=== PATIENT | male | born 1980 | race Hispanic/Latino ===

== ENCOUNTER 2019-07-25 19:37 | Inpatient (IN) | payer BC, OTHER ==
[~2019-07-25] VITALS: Ht 175.3 cm; Wt 112.5 kg
[~2019-07-25 19:37] MED LIST: CEPH-578 PO; SULF1TAB42 PO; TYL3 PO
[2019-07-25 21:03] LABS: APPEARANCE,URINE Cloudy (CLEAR); BASOPHILS % (AUTO) 0.3 % (0.0-5.0); BILIRUBIN,URINE Negative (NEGATIVE); COLOR,URINE Dark Yellow (YELLOW); EOSINOPHILS % (AUTO) 1.8 % (0.0-8.0); GLUCOSE, URINE (UA) Negative (NEGATIVE); HEMATOCRIT 31.4 % (42-54); KETONES,URINE Negative (NEGATIVE); LEUKOCYTE ESTERASE ,URINE Small (NEGATIVE); LYMPHOCYTES % (AUTO) 33.7 % (21.0-51.0); MEAN CORPUSCULAR HEMOGLOBIN 34.7 pg (27.0-33.0); MEAN CORPUSCULAR HGB CONC 34.6 g/dL (32.0-36.0); MEAN CORPUSCULAR VOLUME 100.3 fL (79-99); MONOCYTES % (AUTO) 14.3 % (3.0-13.0); NEUTROPHILS % (AUTO) 49.9 % (40.0-77.0); NITRATE,URINE Positive (NEGATIVE); NUCLEATED RED BLOOD CELLS 0.2 % (0.0-0.19); OCCULT BLOOD,URINE Moderate (NEGATIVE); PLATELET COUNT (AUTO) 40 K/uL (130-400); PROTEIN,URINE POS 1+ mg/dL (NEGATIVE); RED BLOOD CELL COUNT(AUTO) 3.13 MIL/uL (4.50-6.20); RED CELL DISTRIBUTION WIDTH 16.8 % (11.0-15.5); WHITE BLOOD COUNT (AUTO) 4.2 K/uL (4.8-10.8)
[2019-07-25 21:12] LABS: BACTERIA,URINE Many /HPF (None Seen); MUCUS,URINE Moderate LPF (None Seen)
[2019-07-25 21:13] LABS: POTASSIUM 3.8 mmol/L (3.5-5.1)
[2019-07-25 21:17] LABS: INR 1.35 (0.85-1.15); PARTIAL THROMBOPLASTIN TIME 33.7 SEC (26.3-35.5)
[2019-07-25 21:18] LABS: ALBUMIN 1.3 g/dL (3.5-5.0); BILIRUBIN,TOTAL 1.7 mg/dL (0.2-1.0); TOTAL PROTEIN, SERUM 7.3 g/dL (6.0-8.3)
[2019-07-25] MEDS ORDERED: LACTULOSE 20 GM/30 ML UDCUP ONE (22:14)
[2019-07-25] MEDS ORDERED: CEFTRIAXONE SODIUM 1 GM ONE (22:15)
[2019-07-25] MEDS ORDERED: ONDANSETRON HCL 4 MG/2 ML VIAL IVP PRN ×2 (22:45)
[2019-07-25] MEDS ORDERED: ACETAMINOPHEN EXTRA STRENGTH 500 MG TABLET PO PRN (22:45)
[2019-07-26] MEDS ORDERED: FOLI0.4T2 PO (01:36)
[2019-07-26] MEDS ORDERED: FURO40TA7 PO (01:36)
[2019-07-26] MEDS ORDERED: SPIR50TA5 PO (01:36)
[2019-07-26] MEDS ORDERED: OXYC-586 PO (01:36)
--- NOTE | 2019-07-26 04:50 | NUR ---
Admitted to room 202 at 0450 from ED via wheelchair. Patient A&Ox4, VSS, no complaints at this time.
[2019-07-26 04:56] VITALS: BP 141/95
[2019-07-26 05:49] LABS: HEMATOCRIT 31.6 % (42-54); MEAN CORPUSCULAR HEMOGLOBIN 35.4 pg (27.0-33.0); MEAN CORPUSCULAR HGB CONC 34.9 g/dL (32.0-36.0); MEAN CORPUSCULAR VOLUME 101.3 fL (79-99); NUCLEATED RED BLOOD CELLS 0.1 % (0.0-0.19); PLATELET COUNT (AUTO) 37 K/uL (130-400); RED BLOOD CELL COUNT(AUTO) 3.12 MIL/uL (4.50-6.20); RED CELL DISTRIBUTION WIDTH 16.8 % (11.0-15.5); WHITE BLOOD COUNT (AUTO) 4.3 K/uL (4.8-10.8)
[2019-07-26 06:10] LABS: ALBUMIN 1.3 g/dL (3.5-5.0); BILIRUBIN,TOTAL 1.7 mg/dL (0.2-1.0); MAGNESIUM 2.8 mg/dL (1.80-2.40); PHOSPHORUS 3.1 mg/dL (2.5-4.9); POTASSIUM 3.7 mmol/L (3.5-5.1); TOTAL PROTEIN, SERUM 7.2 g/dL (6.0-8.3)
[2019-07-26 07:41] VITALS: BP 113/66
[2019-07-26] MEDS ORDERED: CEFTRIAXONE SODIUM VIAL 1 GM in SODIUM CHLORIDE 0.9% 50 ML IV SCH (09:00)
[2019-07-26] MEDS ORDERED: THIAMINE HCL 100 MG/ML 2ML VIAL IV SCH (09:00)
[2019-07-26] MEDS ORDERED: PANTOPRAZOLE 40 MG/VIAL IVP SCH (09:00)
[2019-07-26] MEDS: LACTULOSE 20 GM/30 ML UDCUP PO SCH ×3 (09:54→21:43)
[2019-07-26] MEDS: THIAMINE HCL 100 MG/ML 2ML VIAL IVP SCH (09:54)
[2019-07-26] MEDS: CEFTRIAXONE SODIUM 1 GM IVP SCH (09:54)
[2019-07-26 11:36] VITALS: BP 130/90
--- NOTE | 2019-07-26 13:10 | NUR ---
REPORT RECEIVED FROM [facility] 2ND FLOOR, PT. TO ROOM 322, AAOX 4, NO NEEDS VOICED AT THIS TIME . WALKING ABOUT IN ROOM AND STATES JUST A LITTLE RESTLESS.
--- NOTE | 2019-07-26 14:11 | NUR ---
DC PLAN VISITED WITH PATIENT. PATIENT LIVES WITH GIRLFRIEND AND KIDS. INDEPENDENT ABLE TO PERFORM ADL'S. PATIENT HAS NO SERVICES OR DME'S. FEELS SAFE TO RETURN HOME. Addendum: 07/26/19 at 1412 by DANGELO WEEKS RN CM Amended: Links added.
[2019-07-26 16:00] VITALS: BP 143/76
[2019-07-26 19:00] VITALS: BP 147/88
[2019-07-26 23:00] VITALS: BP 131/75
[2019-07-27 03:00] VITALS: BP 129/62
[2019-07-27 07:30] VITALS: BP 134/75
--- NOTE | 2019-07-27 08:00 | NUR ---
AM SHIFT ASSESSMENT.
[2019-07-27] MEDS: LACTULOSE 20 GM/30 ML UDCUP PO SCH ×3 (08:58→20:49)
[2019-07-27] MEDS: PANTOPRAZOLE SODIUM 40 MG TABLET.DR PO SCH (08:58)
[2019-07-27 11:00] VITALS: BP 140/80
--- NOTE | 2019-07-27 14:00 | NUR ---
REFUSED LACTULOSE AT TIS TIME, STATES HAS HAD A TOTAL OF 7 LOOSE STOOLS SO FAR.
[2019-07-27] MEDS ORDERED: THIAMINE HCL 100 MG/ML 2ML VIAL ONE (15:17)
[2019-07-27] MEDS ORDERED: CEFTRIAXONE SODIUM 1 GM ONE (15:17)
[2019-07-27] MEDS: THIAMINE HCL 100 MG/ML 2ML VIAL IVP SCH (15:21)
[2019-07-27] MEDS: CEFTRIAXONE SODIUM 1 GM IVP SCH (15:22)
[2019-07-27 16:00] VITALS: BP 138/73
[2019-07-27] MEDS ORDERED: ACETAMINOPHEN EXTRA STRENGTH 500 MG TABLET ONE (21:02)
[2019-07-27 21:58] VITALS: BP 130/83
[2019-07-28 00:08] VITALS: BP 151/90
[2019-07-28 04:54] VITALS: BP 135/72
[2019-07-28 05:18] LABS: HEMATOCRIT 32.6 % (42-54); MEAN CORPUSCULAR HEMOGLOBIN 35.6 pg (27.0-33.0); MEAN CORPUSCULAR HGB CONC 35.1 g/dL (32.0-36.0); MEAN CORPUSCULAR VOLUME 101.4 fL (79-99); NUCLEATED RED BLOOD CELLS 0.1 % (0.0-0.19); PLATELET COUNT (AUTO) 29 K/uL (130-400); RED BLOOD CELL COUNT(AUTO) 3.22 MIL/uL (4.50-6.20); RED CELL DISTRIBUTION WIDTH 16.9 % (11.0-15.5); WHITE BLOOD COUNT (AUTO) 4.7 K/uL (4.8-10.8)
[2019-07-28 05:38] LABS: CREATININE 1.2 mg/dL (0.5-1.5); POTASSIUM 3.9 mmol/L (3.5-5.1)
[2019-07-28 05:44] LABS: BAND NEUTROPHILS % (MANUAL) 6 % (0-2); BASOPHILS % (MANUAL) 2 % (0-2); EOSINOPHILS % (MANUAL) 1 % (1-6); LYMPHOCYTES % (MANUAL) 23 % (22-44); MAN.DIFF COMMENT-IMPRESSION MANUAL DIFFERENTIAL; MONOCYTES % (MANUAL) 8 % (2-9); REACTIVE LYMPHOCYTES 1 % (0-0); SEGMENTED NEUTROPHILS % 59 % (40-70)
[2019-07-28 05:45] LABS: PLATELET MORPHOLOGY COMMENT MARKED DECREASE
[2019-07-28 08:00] VITALS: BP 141/79
[2019-07-28] MEDS: LACTULOSE 20 GM/30 ML UDCUP PO SCH ×2 (09:27→14:00)
[2019-07-28] MEDS: PANTOPRAZOLE SODIUM 40 MG TABLET.DR PO SCH (09:27)
[2019-07-28] MEDS: CEFTRIAXONE SODIUM 1 GM IVP SCH (10:33)
[2019-07-28] MEDS: THIAMINE HCL 100 MG/ML 2ML VIAL IVP SCH (10:33)
[2019-07-28 12:00] VITALS: BP 139/84
[2019-07-28] MEDS ORDERED: LEVO500T2 PO (14:23)
[2019-07-28] MEDS ORDERED: LACT10SO9 PO (14:23)
[2019-07-28 16:00] VITALS: BP 136/79
== END 2019-07-28 17:00 | disposition home or self-care (01) | DRG 442 ==
LOC: EDH 19:37 → EDHIP 19:38 → 2AH 07-26 04:28 → UNDODISIN 07-26 12:00 → 3DH 07-26 13:08
PROVIDERS: ADMIT Internal Medicine Nephrology; ATTEND Internal Medicine Nephrology
DX: K72.90 Hepatic failure, unspecified without coma (principal); N39.0 Urinary tract infection, site not specified; K74.60 Unspecified cirrhosis of liver; B19.20 Unspecified viral hepatitis C without hepatic coma; D69.6 Thrombocytopenia, unspecified; D64.9 Anemia, unspecified; E66.9 Obesity, unspecified; F10.10 Alcohol abuse, uncomplicated; Z91.19 Patient's noncompliance with other medical treatment and regimen; Z68.36 Body mass index [BMI] 36.0-36.9, adult
CPT/HCPCS: 36415; 76700; 80048; 80053; 81001; 82140; 82550; 83735; 84100; 84484; 85025; 85027; 85610; 85730; 87040; 87077; 87088; 87186; 93005; C9113; G0378; J0696; J3411

== ENCOUNTER 2019-11-11 07:46 | Inpatient (IN) | payer OTHER ==
[~2019-11-11] VITALS: Ht 172.7 cm; Wt 124.9 kg
[~2019-11-11 07:46] MED LIST changes: -CEPH-578 PO; +FOLI0.4T2 PO; +FURO40TA7 PO; +LACT10SO9 PO; +LEVO500T2 PO; +SPIR50TA5 PO; -SULF1TAB42 PO; -TYL3 PO
[2019-11-11 09:09] LABS: BASOPHILS % (AUTO) 0.9 % (0.0-5.0); EOSINOPHILS % (AUTO) 2.9 % (0.0-8.0); HEMATOCRIT 30.6 % (42-54); LYMPHOCYTES % (AUTO) 14.9 % (21.0-51.0); MEAN CORPUSCULAR HEMOGLOBIN 33.9 pg (27.0-33.0); MEAN CORPUSCULAR VOLUME 99.7 fL (79-99); MONOCYTES % (AUTO) 9.6 % (3.0-13.0); NEUTROPHILS % (AUTO) 70.7 % (40.0-77.0); PLATELET COUNT (AUTO) 70 K/uL (130-400); RED BLOOD CELL COUNT(AUTO) 3.07 MIL/uL (4.50-6.20); RED CELL DISTRIBUTION WIDTH 17.3 % (11.0-15.5)
[2019-11-11 09:26] LABS: INR 1.31 (0.85-1.15); PARTIAL THROMBOPLASTIN TIME 32.2 SEC (26.3-35.5); PROTHROMBIN TIME 13.6 SEC (9.6-11.6)
[2019-11-11 09:27] LABS: CREATININE 1.1 mg/dL (0.5-1.5); POTASSIUM 3.8 mmol/L (3.5-5.1)
[2019-11-11 09:31] LABS: ALBUMIN 1.3 g/dL (3.5-5.0); BILIRUBIN,TOTAL 2.3 mg/dL (0.2-1.0); TOTAL PROTEIN, SERUM 7.3 g/dL (6.0-8.3)
[2019-11-11] MEDS ORDERED: SODIUM CHLORIDE 0.9% 500ML 500 ML IV ONE (09:48)
[2019-11-11] MEDS ORDERED: IOHEXOL 350 MG/ML 100ML INFUS..BTL IV ONE (09:49)
[2019-11-11] MEDS ORDERED: MORPHINE SULFATE 2 MG/ML 1ML SYG ONE (10:08)
[2019-11-11] MEDS ORDERED: VANCOMYCIN 1.75 GM in SODIUM CHLORIDE 0.9% 250 ML IV SCH (11:34)
[2019-11-11] MEDS ORDERED: VANCOMYCIN 1GM+NS 250ML 250 ML IV SCH (11:34)
[2019-11-11] MEDS ORDERED: ACET1TAB12 PO (14:37)
[2019-11-11 14:46] VITALS: BP 120/76
[2019-11-11] MEDS ORDERED: VANCOMYCIN PROTOCOL PER PHARMACY IV SCH (15:15)
[2019-11-11] MEDS: ACETAMINOPHEN-CODEINE 300/30MG TAB PO PRN (15:18)
[2019-11-11] MEDS ORDERED: PANTOPRAZOLE 40 MG/VIAL IVP SCH (15:30)
[2019-11-11 16:00] VITALS: BP 134/79
[2019-11-11] MEDS: ZOSYN 3.375GM+NS 50ML 50 ML IV SCH (16:33)
[2019-11-11 20:12] VITALS: BP 136/69
[2019-11-11] MEDS ORDERED: LACTULOSE 20 GM/30 ML UDCUP PO SCH (21:00)
[2019-11-11] MEDS: ONDANSETRON HCL 4 MG/2 ML VIAL IVP PRN (21:10)
[2019-11-11] MEDS: VANCOMYCIN 1GM+NS 250ML 250 ML IV SCH (21:10)
[2019-11-12 00:16] VITALS: BP 135/86
[2019-11-12] MEDS: ZOSYN 3.375GM+NS 50ML 50 ML IV SCH ×4 (00:49→23:10)
[2019-11-12] MEDS: HYDROMORPHONE HCL 2 MG/ML VIAL IVP PRN ×3 (02:37→23:10)
[2019-11-12] MEDS: ONDANSETRON HCL 4 MG/2 ML VIAL IVP PRN ×2 (02:37→23:10)
[2019-11-12 04:16] VITALS: BP 119/67
[2019-11-12] MEDS: VANCOMYCIN 1GM+NS 250ML 250 ML IV SCH ×3 (04:39→21:24)
[2019-11-12 06:27] LABS: HEMATOCRIT 28.3 % (42-54); MEAN CORPUSCULAR HEMOGLOBIN 33.7 pg (27.0-33.0); MEAN CORPUSCULAR HGB CONC 34.3 g/dL (32.0-36.0); MEAN CORPUSCULAR VOLUME 98.3 fL (79-99); PLATELET COUNT (AUTO) 55 K/uL (130-400); RED BLOOD CELL COUNT(AUTO) 2.88 MIL/uL (4.50-6.20); RED CELL DISTRIBUTION WIDTH 17.1 % (11.0-15.5); WHITE BLOOD COUNT (AUTO) 6.7 K/uL (4.8-10.8)
[2019-11-12 07:02] LABS: CREATININE 1.1 mg/dL (0.5-1.5); PHOSPHORUS 3.7 mg/dL (2.5-4.9); POTASSIUM 4.1 mmol/L (3.5-5.1)
[2019-11-12 08:00] VITALS: BP 126/76
[2019-11-12] MEDS: FOLIC ACID 1 MG TABLET PO SCH (09:20)
[2019-11-12] MEDS: LACTULOSE 20 GM/30 ML UDCUP PO SCH ×2 (09:20→18:09)
[2019-11-12] MEDS: FUROSEMIDE 40 MG TABLET PO SCH (09:21)
[2019-11-12] MEDS: SPIRONOLACTONE 25 MG TAB PO SCH (09:21)
[2019-11-12 11:00] VITALS: BP 135/84
--- NOTE | 2019-11-12 11:00 | NUR ---
vanco trough 20.8 pharmacy stated to hold current dose
[2019-11-12] MEDS: SODIUM CHLORIDE 0.9% 1000ML 1,000 ML IV SCH (12:21)
[2019-11-12] MEDS: PANTOPRAZOLE SODIUM 40 MG TABLET.DR PO SCH (12:21)
[2019-11-12 16:00] VITALS: BP 138/84
--- NOTE | 2019-11-12 17:05 | NUR ---
cm note met with patient and spouse augustina gamez resides athome with spouse, independent wtih ambualtion but uses the walker only as needed. no provider, able to do own personal care, drives at times. spouse works at an [employer] office, states she is willing to assist with his wound care as needed. dc plan is back to home. at sd. Addendum: 11/12/19 at 1707 by LUCIA MANN CM Amended: Links added.
[2019-11-12 20:20] VITALS: BP 123/73
[2019-11-13] VITALS (7 sets, daily range): BP systolic 111–125; BP diastolic 60–78
[2019-11-13] MEDS: PANTOPRAZOLE SODIUM 40 MG TABLET.DR PO SCH (05:20)
[2019-11-13 05:39] LABS: BASOPHILS % (AUTO) 0.8 % (0.0-5.0); EOSINOPHILS % (AUTO) 4.6 % (0.0-8.0); HEMATOCRIT 27.8 % (42-54); LYMPHOCYTES % (AUTO) 16.5 % (21.0-51.0); MEAN CORPUSCULAR HEMOGLOBIN 33.3 pg (27.0-33.0); MEAN CORPUSCULAR HGB CONC 33.5 g/dL (32.0-36.0); MEAN CORPUSCULAR VOLUME 99.6 fL (79-99); MONOCYTES % (AUTO) 10.2 % (3.0-13.0); NEUTROPHILS % (AUTO) 67.1 % (40.0-77.0); PLATELET COUNT (AUTO) 51 K/uL (130-400); RED BLOOD CELL COUNT(AUTO) 2.79 MIL/uL (4.50-6.20); RED CELL DISTRIBUTION WIDTH 17.2 % (11.0-15.5); WHITE BLOOD COUNT (AUTO) 6.1 K/uL (4.8-10.8)
[2019-11-13 05:46] LABS: INR 1.33 (0.85-1.15); PARTIAL THROMBOPLASTIN TIME 35.3 SEC (26.3-35.5); PROTHROMBIN TIME 13.8 SEC (9.6-11.6)
[2019-11-13 05:52] LABS: ALBUMIN 1.1 g/dL (3.5-5.0); BILIRUBIN,TOTAL 1.7 mg/dL (0.2-1.0); CREATININE 1.2 mg/dL (0.5-1.5); POTASSIUM 3.5 mmol/L (3.5-5.1); TOTAL PROTEIN, SERUM 6.5 g/dL (6.0-8.3)
[2019-11-13] MEDS: ZOSYN 3.375GM+NS 50ML 50 ML IV SCH ×2 (07:51→17:31)
[2019-11-13] MEDS: LACTULOSE 20 GM/30 ML UDCUP PO SCH ×2 (08:00→17:00)
[2019-11-13] MEDS: ONDANSETRON HCL 4 MG/2 ML VIAL IVP PRN ×2 (08:14→15:30)
[2019-11-13] MEDS: HYDROMORPHONE HCL 2 MG/ML VIAL IVP PRN ×3 (08:15→21:09)
[2019-11-13] MEDS: FUROSEMIDE 40 MG TABLET PO SCH (08:18)
[2019-11-13] MEDS: FOLIC ACID 1 MG TABLET PO SCH (08:18)
[2019-11-13] MEDS: SPIRONOLACTONE 25 MG TAB PO SCH (08:18)
[2019-11-13] MEDS: VANCOMYCIN 1GM+NS 250ML 250 ML IV SCH ×2 (09:50→20:16)
--- NOTE | 2019-11-13 17:30 | NUR ---
SURGERY DR. RAHMAN CALLED TO NOTIFY THIS NURSE THAT I WAS TO CANCEL THE I&D SCHEDULED FOR TODAY. HE ASKED IF THE PATIENT HAD INFECTIOUS DISEASE ON BOARD AND I REPLIED "NO". HE ASKED IF THE PATIENT WAS ON ANTIBIOTICS AND HE WAS TOLD THAT YES HE IS ON TWO DIFFERENT IV ANTIBIOTICS. HE RECOMMENDED KEEPING THE PATIENT ON THE ANTIBIOTICS AND IF THE PRIMARY DIDN'T SEE IMPROVEMENT THEN HE SHOULD CALL HIM BACK TO LOOK AT THE LEG AGAIN. FOR THE MEANWHILE FEED THE PATIENT AND CANCEL THE SURGERY. DIRECTOR AND LAMP SHADES SUPERVISOR MADE AWARE.
[2019-11-14] MEDS: ZOSYN 3.375GM+NS 50ML 50 ML IV SCH ×3 (00:46→15:12)
[2019-11-14] MEDS: ACETAMINOPHEN-CODEINE 300/30MG TAB PO PRN ×2 (00:58→10:27)
[2019-11-14] MEDS: ONDANSETRON HCL 4 MG/2 ML VIAL IVP PRN ×3 (01:50→21:10)
[2019-11-14] MEDS: HYDROMORPHONE HCL 2 MG/ML VIAL IVP PRN ×4 (01:51→20:23)
[2019-11-14 03:54] VITALS: BP 116/66
[2019-11-14] MEDS: PANTOPRAZOLE SODIUM 40 MG TABLET.DR PO SCH (05:55)
[2019-11-14 06:41] LABS: HEMATOCRIT 27.7 % (42-54); MEAN CORPUSCULAR HEMOGLOBIN 33.3 pg (27.0-33.0); MEAN CORPUSCULAR HGB CONC 33.2 g/dL (32.0-36.0); MEAN CORPUSCULAR VOLUME 100.4 fL (79-99); PLATELET COUNT (AUTO) 60 K/uL (130-400); RED BLOOD CELL COUNT(AUTO) 2.76 MIL/uL (4.50-6.20); RED CELL DISTRIBUTION WIDTH 17.7 % (11.0-15.5)
[2019-11-14 06:55] LABS: CREATININE 1.2 mg/dL (0.5-1.5)
[2019-11-14] MEDS: LACTULOSE 20 GM/30 ML UDCUP PO SCH ×2 (07:18→16:25)
[2019-11-14 07:41] LABS: EOSINOPHILS % (MANUAL) 3 % (1-6); LYMPHOCYTES % (MANUAL) 12 % (22-44); MONOCYTES % (MANUAL) 9 % (2-9); SEGMENTED NEUTROPHILS % 76 % (40-70)
[2019-11-14 07:45] LABS: MAN.DIFF COMMENT-IMPRESSION MANUAL DIFFERENTIAL; PLATELET MORPHOLOGY COMMENT DECREASED
[2019-11-14 08:18] VITALS: BP 123/75
[2019-11-14] MEDS: VANCOMYCIN 1GM+NS 250ML 250 ML IV SCH ×2 (08:20→21:01)
[2019-11-14] MEDS: FOLIC ACID 1 MG TABLET PO SCH (08:20)
[2019-11-14] MEDS: FUROSEMIDE 40 MG TABLET PO SCH (08:21)
[2019-11-14] MEDS: SPIRONOLACTONE 25 MG TAB PO SCH (08:21)
[2019-11-14 10:56] VITALS: BP 141/82
[2019-11-14 17:12] VITALS: BP 116/63
[2019-11-14 20:00] VITALS: BP 130/73
[2019-11-14] MEDS: VANCOMYCIN 1.25 GM in SODIUM CHLORIDE 0.9% 250 ML IV SCH (21:00)
[2019-11-14] MEDS ORDERED: COMPOUND IV REFRIGERATED 1 EACH IVSOLN MISC PRN (21:15)
[2019-11-15] VITALS: BP 123/68
[2019-11-15] MEDS: ZOSYN 3.375GM+NS 50ML 50 ML IV SCH ×3 (00:17→17:46)
[2019-11-15] MEDS: HYDROMORPHONE HCL 2 MG/ML VIAL IVP PRN ×3 (02:12→09:29)
[2019-11-15 03:56] VITALS: BP 126/68
[2019-11-15] MEDS: ONDANSETRON HCL 4 MG/2 ML VIAL IVP PRN ×3 (06:01→15:02)
[2019-11-15 06:08] LABS: HEMATOCRIT 27.6 % (42-54); MEAN CORPUSCULAR HEMOGLOBIN 33.9 pg (27.0-33.0); MEAN CORPUSCULAR HGB CONC 33.7 g/dL (32.0-36.0); MEAN CORPUSCULAR VOLUME 100.7 fL (79-99); PLATELET COUNT (AUTO) 60 K/uL (130-400); RED BLOOD CELL COUNT(AUTO) 2.74 MIL/uL (4.50-6.20); RED CELL DISTRIBUTION WIDTH 17.3 % (11.0-15.5); WHITE BLOOD COUNT (AUTO) 6.2 K/uL (4.8-10.8)
[2019-11-15 06:28] LABS: CREATININE 1.1 mg/dL (0.5-1.5); POTASSIUM 3.6 mmol/L (3.5-5.1)
[2019-11-15 08:38] VITALS: BP 125/71
[2019-11-15] MEDS: PANTOPRAZOLE SODIUM 40 MG TABLET.DR PO SCH (09:28)
[2019-11-15] MEDS: SPIRONOLACTONE 25 MG TAB PO SCH (09:28)
[2019-11-15] MEDS: LACTULOSE 20 GM/30 ML UDCUP PO SCH ×2 (09:28→17:00)
[2019-11-15] MEDS: FOLIC ACID 1 MG TABLET PO SCH (09:28)
[2019-11-15] MEDS: VANCOMYCIN 1.25 GM in SODIUM CHLORIDE 0.9% 250 ML IV SCH ×2 (09:28→20:07)
[2019-11-15] MEDS: FUROSEMIDE 40 MG TABLET PO SCH (09:28)
--- NOTE | 2019-11-15 11:04 | NUR ---
PT C/O PAIN, INCREASING IN FREQ DURATION AND INTENSITY, US OF RLE SHOWING AN INCREASE SIZE OF ABSCESS, NOTIFIED DR RAHMAN STATES HE WILL SEE PATIENT TODAY, NO ORDERS RECEIVED. PT IS STABLE, RLE EDEMATOUS, ERYTHEMA, WARM TO TOUCH, TENDER, SKIN INTACT, VS WNL. WILL CONT TO MONITOR
[2019-11-15 12:07] VITALS: BP 145/70
[2019-11-15] MEDS: HYDROMORPHONE HCL 0.5 MG/0.5 ML ML IVP PRN ×2 (15:02→20:07)
[2019-11-15 16:38] VITALS: BP 142/60
[2019-11-15 20:04] VITALS: BP 130/76
[2019-11-16] VITALS (30 sets, daily range): BP systolic 121–158; BP diastolic 71–93
[2019-11-16] MEDS: ZOSYN 3.375GM+NS 50ML 50 ML IV SCH ×4 (00:05→23:45)
[2019-11-16] MEDS: HYDROMORPHONE HCL 0.5 MG/0.5 ML ML IVP PRN ×5 (00:05→22:54)
[2019-11-16 05:04] LABS: HEMATOCRIT 26.1 % (42-54); MEAN CORPUSCULAR HEMOGLOBIN 33.2 pg (27.0-33.0); MEAN CORPUSCULAR HGB CONC 33.3 g/dL (32.0-36.0); MEAN CORPUSCULAR VOLUME 99.6 fL (79-99); PLATELET COUNT (AUTO) 60 K/uL (130-400); RED BLOOD CELL COUNT(AUTO) 2.62 MIL/uL (4.50-6.20); RED CELL DISTRIBUTION WIDTH 17.5 % (11.0-15.5); WHITE BLOOD COUNT (AUTO) 4.7 K/uL (4.8-10.8)
[2019-11-16 05:09] LABS: CREATININE 1.2 mg/dL (0.5-1.5); POTASSIUM 3.1 mmol/L (3.5-5.1)
[2019-11-16 05:18] LABS: INR 1.35 (0.85-1.15)
[2019-11-16] MEDS: PANTOPRAZOLE SODIUM 40 MG TABLET.DR PO SCH (07:30)
[2019-11-16] MEDS: LACTULOSE 20 GM/30 ML UDCUP PO SCH ×2 (07:41→16:34)
[2019-11-16] MEDS: FUROSEMIDE 40 MG TABLET PO SCH (07:41)
[2019-11-16] MEDS: SPIRONOLACTONE 25 MG TAB PO SCH (07:41)
[2019-11-16] MEDS: FOLIC ACID 1 MG TABLET PO SCH (07:41)
[2019-11-16] MEDS: ONDANSETRON HCL 4 MG/2 ML VIAL IVP PRN ×2 (08:57→18:45)
[2019-11-16] MEDS: VANCOMYCIN 1.25 GM in SODIUM CHLORIDE 0.9% 250 ML IV SCH ×2 (10:27→20:15)
[2019-11-16] MEDS ORDERED: LACTATED RINGERS 1000ML 1,000 ML IV ONE (13:35)
[2019-11-16] MEDS ORDERED: LIDOCAINE PF 2% 5ML ABBOJECT ONE (13:44)
[2019-11-16] MEDS ORDERED: MIDAZOLAM HCL 1 MG/ML 2ML VIAL ONE (13:44)
[2019-11-16] MEDS ORDERED: PROPOFOL 10 MG/ML 20ML VIAL IV ONE (13:45)
[2019-11-16] MEDS ORDERED: FENTANYL CITRATE PF 50 MCG/1 ML 2ML VIAL ONE (13:45)
[2019-11-16] MEDS ORDERED: CEFAZOLIN SODIUM 1 GM VIAL ONE (13:52)
[2019-11-16] MEDS ORDERED: SUCCINYLCHOLINE 200MG/10ML SYR ONE ×2 (13:53→13:56)
[2019-11-16] MEDS ORDERED: EPHEDRINE SULFATE 50 MG/ML AMPULE ONE (14:13)
[2019-11-16] MEDS: SODIUM CHLORIDE 0.9% 1000ML 1,000 ML IV SCH (14:58)
[2019-11-16] MEDS ORDERED: MEPERIDINE-PF 25 MG/ML SYG ONE ×3 (15:02→15:27)
[2019-11-16] MEDS ORDERED: DEXTROSE 50%-WATER 25 GM/50 ML VIAL ONE (15:42)
[2019-11-16] MEDS: ACETAMINOPHEN-CODEINE 300/30MG TAB PO PRN (20:16)
[2019-11-17] VITALS (7 sets, daily range): BP systolic 118–141; BP diastolic 50–79
[2019-11-17] MEDS: ACETAMINOPHEN-CODEINE 300/30MG TAB PO PRN (00:57)
[2019-11-17] MEDS: PANTOPRAZOLE SODIUM 40 MG TABLET.DR PO SCH (07:10)
[2019-11-17] MEDS: FUROSEMIDE 40 MG TABLET PO SCH (08:09)
[2019-11-17] MEDS: FOLIC ACID 1 MG TABLET PO SCH (08:09)
[2019-11-17] MEDS: ZOSYN 3.375GM+NS 50ML 50 ML IV SCH ×3 (08:09→23:57)
[2019-11-17] MEDS: LACTULOSE 20 GM/30 ML UDCUP PO SCH ×2 (08:09→17:00)
[2019-11-17] MEDS: ONDANSETRON HCL 4 MG/2 ML VIAL IVP PRN (08:10)
[2019-11-17] MEDS: HYDROMORPHONE HCL 0.5 MG/0.5 ML ML IVP PRN ×2 (08:10→19:57)
[2019-11-17] MEDS: SPIRONOLACTONE 25 MG TAB PO SCH (08:10)
[2019-11-17] MEDS: VANCOMYCIN 1.25 GM in SODIUM CHLORIDE 0.9% 250 ML IV SCH ×2 (09:58→21:37)
[2019-11-17] MEDS ORDERED: POTASSIUM CHLORIDE 10% ELIXIR 20 MEQ/15 ML UDCUP PO PRN (16:45)
[2019-11-17] MEDS ORDERED: LIDOCAINE HCL-MPF 1% 2ML VIAL IV PRN (16:45)
[2019-11-17] MEDS ORDERED: POTASSIUM CHLORIDE 20MEQ/100ML 100 ML IV PRN (16:45)
[2019-11-17] MEDS: POTASSIUM CHLORIDE 20 MEQ ERTAB PO PRN ×3 (17:25→23:57)
[2019-11-18 03:13] VITALS: BP 127/67
[2019-11-18] MEDS: HYDROMORPHONE HCL 0.5 MG/0.5 ML ML IVP PRN ×3 (05:01→23:05)
[2019-11-18 05:33] LABS: HEMATOCRIT 24.9 % (42-54); MEAN CORPUSCULAR HEMOGLOBIN 33.6 pg (27.0-33.0); MEAN CORPUSCULAR HGB CONC 34.1 g/dL (32.0-36.0); MEAN CORPUSCULAR VOLUME 98.4 fL (79-99); PLATELET COUNT (AUTO) 50 K/uL (130-400); RED BLOOD CELL COUNT(AUTO) 2.53 MIL/uL (4.50-6.20); RED CELL DISTRIBUTION WIDTH 17.2 % (11.0-15.5); WHITE BLOOD COUNT (AUTO) 4.4 K/uL (4.8-10.8)
[2019-11-18 05:58] LABS: BILIRUBIN,DIRECT 0.9 mg/dL (0.0-0.3); BILIRUBIN,TOTAL 1.4 mg/dL (0.2-1.0); CREATININE 1.1 mg/dL (0.5-1.5); MAGNESIUM 1.2 mg/dL (1.80-2.40); POTASSIUM 3.6 mmol/L (3.5-5.1); TOTAL PROTEIN, SERUM 6.2 g/dL (6.0-8.3)
[2019-11-18 06:04] LABS: BAND NEUTROPHILS % (MANUAL) 12 % (0-2); BASOPHILS % (MANUAL) 1 % (0-2); EOSINOPHILS % (MANUAL) 2 % (1-6); LYMPHOCYTES % (MANUAL) 14 % (22-44); MONOCYTES % (MANUAL) 8 % (2-9); SEGMENTED NEUTROPHILS % 63 % (40-70)
[2019-11-18 06:06] LABS: MAN.DIFF COMMENT-IMPRESSION MANUAL DIFFERENTIAL
[2019-11-18 06:07] LABS: PLATELET MORPHOLOGY COMMENT DECREASED
[2019-11-18] MEDS: PANTOPRAZOLE SODIUM 40 MG TABLET.DR PO SCH ×2 (06:33→10:50)
[2019-11-18] MEDS: MAGNESIUM 2GM PREMIX 50ML 50 ML IV PRN (06:34)
[2019-11-18] MEDS: POTASSIUM CHLORIDE 20 MEQ ERTAB PO PRN ×2 (06:34→10:49)
[2019-11-18] MEDS: LACTULOSE 20 GM/30 ML UDCUP PO SCH ×2 (08:00→17:00)
[2019-11-18 08:15] VITALS: BP 114/72
[2019-11-18] MEDS: ZOSYN 3.375GM+NS 50ML 50 ML IV SCH ×2 (10:43→15:52)
[2019-11-18] MEDS: VANCOMYCIN 1.25 GM in SODIUM CHLORIDE 0.9% 250 ML IV SCH ×2 (10:48→20:32)
[2019-11-18] MEDS: FOLIC ACID 1 MG TABLET PO SCH (10:49)
[2019-11-18] MEDS: FUROSEMIDE 40 MG TABLET PO SCH (10:49)
[2019-11-18] MEDS: SPIRONOLACTONE 25 MG TAB PO SCH (10:55)
[2019-11-18 11:21] VITALS: BP 123/73
--- NOTE | 2019-11-18 13:05 | NUR ---
DR AGUILAR ROUNDED ON PATIENT ORDERS RECEIVED FOR CBC,BMP IN AM. ORDERS PLACED
[2019-11-18 16:32] VITALS: BP 129/76
[2019-11-18 18:08] VITALS: BP 131/68
[2019-11-18 23:36] VITALS: BP 146/81
[2019-11-19] MEDS: ZOSYN 3.375GM+NS 50ML 50 ML IV SCH ×4 (00:02→23:55)
[2019-11-19 03:47] VITALS: BP 124/81
[2019-11-19 05:14] LABS: HEMATOCRIT 27.5 % (42-54); MEAN CORPUSCULAR HEMOGLOBIN 33.2 pg (27.0-33.0); MEAN CORPUSCULAR HGB CONC 33.8 g/dL (32.0-36.0); MEAN CORPUSCULAR VOLUME 98.2 fL (79-99); PLATELET COUNT (AUTO) 50 K/uL (130-400); RED CELL DISTRIBUTION WIDTH 17.5 % (11.0-15.5); WHITE BLOOD COUNT (AUTO) 4.2 K/uL (4.8-10.8)
[2019-11-19 05:22] LABS: CREATININE 1.1 mg/dL (0.5-1.5); MAGNESIUM 1.4 mg/dL (1.80-2.40); POTASSIUM 3.4 mmol/L (3.5-5.1)
[2019-11-19] MEDS: POTASSIUM CHLORIDE 20 MEQ ERTAB PO PRN ×2 (05:32→07:12)
[2019-11-19] MEDS: MAGNESIUM 2GM PREMIX 50ML 50 ML IV PRN (05:32)
[2019-11-19] MEDS: LACTULOSE 20 GM/30 ML UDCUP PO SCH ×2 (08:00→15:38)
[2019-11-19 08:05] VITALS: BP 114/63
[2019-11-19] MEDS: SPIRONOLACTONE 25 MG TAB PO SCH (08:36)
[2019-11-19] MEDS: FUROSEMIDE 40 MG TABLET PO SCH (08:37)
[2019-11-19] MEDS: FOLIC ACID 1 MG TABLET PO SCH (08:38)
[2019-11-19] MEDS: VANCOMYCIN 1.25 GM in SODIUM CHLORIDE 0.9% 250 ML IV SCH ×2 (08:47→21:24)
[2019-11-19] MEDS: HYDROMORPHONE HCL 0.5 MG/0.5 ML ML IVP PRN ×2 (08:52→17:01)
[2019-11-19 10:54] VITALS: BP 137/71
--- NOTE | 2019-11-19 13:30 | NUR ---
PHYSICIAN ROUNDS DR LAUREN AGUILAR ROUNDED ON PATIENT NEW ORDERS RECEIVED FOR CBC, BMP AND MAG LEVEL IN AM, ORDERS PLACED
[2019-11-19 15:37] VITALS: BP 141/83
[2019-11-19 19:29] VITALS: BP 139/66
[2019-11-19 23:45] VITALS: BP 137/76
[2019-11-20 03:22] VITALS: BP 143/77
[2019-11-20] MEDS: HYDROMORPHONE HCL 0.5 MG/0.5 ML ML IVP PRN ×3 (03:26→15:43)
[2019-11-20 06:01] LABS: BASOPHILS % (AUTO) 0.5 % (0.0-5.0); EOSINOPHILS % (AUTO) 9.8 % (0.0-8.0); HEMATOCRIT 26.5 % (42-54); LYMPHOCYTES % (AUTO) 23.8 % (21.0-51.0); MEAN CORPUSCULAR HEMOGLOBIN 33.5 pg (27.0-33.0); MEAN CORPUSCULAR HGB CONC 34.3 g/dL (32.0-36.0); MEAN CORPUSCULAR VOLUME 97.4 fL (79-99); MONOCYTES % (AUTO) 12.3 % (3.0-13.0); NEUTROPHILS % (AUTO) 52.1 % (40.0-77.0); PLATELET COUNT (AUTO) 49 K/uL (130-400); RED BLOOD CELL COUNT(AUTO) 2.72 MIL/uL (4.50-6.20); RED CELL DISTRIBUTION WIDTH 17.2 % (11.0-15.5); WHITE BLOOD COUNT (AUTO) 4.1 K/uL (4.8-10.8)
[2019-11-20 06:22] LABS: CREATININE 1.1 mg/dL (0.5-1.5); MAGNESIUM 1.5 mg/dL (1.80-2.40)
[2019-11-20] MEDS: LACTULOSE 20 GM/30 ML UDCUP PO SCH ×2 (08:00→16:47)
[2019-11-20 08:27] VITALS: BP 133/75
[2019-11-20] MEDS: ZOSYN 3.375GM+NS 50ML 50 ML IV SCH ×2 (08:45→15:43)
[2019-11-20] MEDS: FUROSEMIDE 40 MG TABLET PO SCH (09:00)
[2019-11-20] MEDS: SPIRONOLACTONE 25 MG TAB PO SCH (09:00)
[2019-11-20] MEDS: FOLIC ACID 1 MG TABLET PO SCH (09:00)
[2019-11-20 12:01] VITALS: BP 140/67
[2019-11-20] MEDS: PANTOPRAZOLE SODIUM 40 MG TABLET.DR PO SCH (12:26)
[2019-11-20] MEDS: VANCOMYCIN 1.25 GM in SODIUM CHLORIDE 0.9% 250 ML IV SCH (14:56)
--- NOTE | 2019-11-20 15:42 | NUR ---
ACE Screen - LOS X 9 Pt admitted for Cirrhosis of Liver. Pt NPO at time of screen. RD to follow up with Cirrhosis nutrition education and possible malnutrition education. Pt with Obesity Class II. RD to continue to monitor and follow up. Addendum: 11/20/19 at [address] RD Amended: Links added.
[2019-11-20 16:50] VITALS: BP 149/72
--- NOTE | 2019-11-20 19:01 | NUR ---
SPOKE TO DR. RAHMAN REGARDING SURGERY STATUS. PER DR. RAHMAN, RESCHEDULED SURGERY EARLIER FOR TOMORROW AT 1200. OKAY TO FEED PATIENT TIL 0500. PATIENT MADE AWARE.
[2019-11-20 20:00] VITALS: BP 144/76
[2019-11-21] VITALS (30 sets, daily range): BP systolic 102–194; BP diastolic 43–97
[2019-11-21] MEDS: ZOSYN 3.375GM+NS 50ML 50 ML IV SCH ×3 (00:42→23:00)
[2019-11-21] MEDS: HYDROMORPHONE HCL 0.5 MG/0.5 ML ML IVP PRN ×3 (01:27→16:50)
[2019-11-21] MEDS: VANCOMYCIN 1.25 GM in SODIUM CHLORIDE 0.9% 250 ML IV SCH ×2 (03:30→16:36)
[2019-11-21] MEDS: ACETAMINOPHEN 325 MG TAB PO PRN ×3 (03:50→23:13)
[2019-11-21] MEDS: PANTOPRAZOLE SODIUM 40 MG TABLET.DR PO SCH (06:51)
--- NOTE | 2019-11-21 07:40 | NUR ---
NOTE AAOX3. HE IS SITTING UP. DENIES PAIN AT THIS TIME BUT REPORTS DISCOMFORT TO RIGHT CALF TO AREA WHERE WOUND VAC IS LOCATED. NO LEAKS NOTED TO WOUND VAC DRESSING BUT CANISTER IS COMPLETELY FULL. I CHANGED IT AND SMALL LEAKED SEEMED TO BE PRESENT AROUND CALF AREA BUT REINFORCED DRESSING AND IT STOPPED WITH NO LEAKS DETECTED NOW. BBS CLEAR. NO N/V. HE IS NPO FOR SURGERY TODAY WITH DR RAHMAN. IT WAS INITIALLY PLANNED FOR YESTERDAY BUT IT WAS POSTPONED FOR TODAY.
[2019-11-21] MEDS: FOLIC ACID 1 MG TABLET PO SCH (09:20)
[2019-11-21] MEDS: SPIRONOLACTONE 25 MG TAB PO SCH (09:20)
[2019-11-21] MEDS: FUROSEMIDE 40 MG TABLET PO SCH (09:21)
[2019-11-21] MEDS: LACTULOSE 20 GM/30 ML UDCUP PO SCH ×2 (09:21→16:36)
--- NOTE | 2019-11-21 10:30 | NUR ---
NOTE INFORMED DR RAHMAN OF PATIENT HAVING FEVERS DURING THE NIGHT AND ALSO T MAX 102.3 THIS AM. HE ASKED QUESTIONS REGARDING LAB VALUES. INITIALLY HE SAID TO DO CT SCAN BUT THEN SAID TO KEEP PATIENT ON SCHEDULE FOR TODAY. I EXPLAINED THAT DR AGUILAR WAS MADE AWARE AND HE ORDERED BLOOD CULTURES WHICH HAVE ALREADY BEEN DONE.
[2019-11-21] MEDS ORDERED: LACTATED RINGERS 1000ML 1,000 ML IV ONE (12:30)
--- NOTE | 2019-11-21 12:30 | NUR ---
NOTE PATIENT OUT OF ROOM VIA BED FOR SURGERY WITH DR RAHMAN. TRANSPORTING NURSE ROCÍO HOLT AWARE OF PATIENT FEBRILE EPISODES DURING THE NIGHT AND THIS AM.
[2019-11-21] MEDS ORDERED: MAGNESIUM 2GM PREMIX 50ML 50 ML IV SCH (12:45)
[2019-11-21] MEDS ORDERED: LIDOCAINE PF 2% 5ML ABBOJECT ONE (13:12)
[2019-11-21] MEDS ORDERED: ROCURONIUM 10MG/1ML SYR 10 MG/ML ML ONE (13:13)
[2019-11-21] MEDS ORDERED: MIDAZOLAM HCL 1 MG/ML 2ML VIAL ONE (13:13)
[2019-11-21] MEDS ORDERED: PROPOFOL 10 MG/ML 20ML VIAL IV ONE (13:13)
[2019-11-21] MEDS ORDERED: ONDANSETRON HCL 4 MG/2 ML VIAL ONE (13:13)
[2019-11-21] MEDS ORDERED: FENTANYL CITRATE PF 50 MCG/1 ML 2ML VIAL ONE ×2 (13:17→13:28)
[2019-11-21] MEDS ORDERED: CEFAZOLIN SODIUM 500 MG VIAL IJ ONE (13:32)
[2019-11-21] MEDS ORDERED: GLYCOPYRROLATE 1 MG/5 ML SYRINGE ONE (13:50)
[2019-11-21] MEDS ORDERED: NEOSTIGMINE 5MG/5ML SYR IV ONE (13:51)
[2019-11-21] MEDS ORDERED: METOCLOPRAMIDE 10 MG/2 ML VIAL ONE (13:52)
--- NOTE | 2019-11-21 15:20 | NUR ---
REPORT RECEIVED FROM SENA FLORES (PACU). PATIENT S/P WOUND CLOSURE TO RLE BY DR. RAHMAN UNDER GENERAL ANESTHESIA. DRESSING DRY AND INTACT. ORDERS TO REMOVE DRESSING ON WEDNESDAY AND FOLLOW UP IN OFFICE NEXT WEEK. PATIENT STABLE AT THIS TIME.
[2019-11-21] MEDS ORDERED: ZOSYN 3.375GM+NS 50ML 50 ML IV ONE (22:55)
[2019-11-22] MEDS: HYDROMORPHONE HCL 0.5 MG/0.5 ML ML IVP PRN (02:34)
[2019-11-22 03:00] VITALS: BP 117/67
[2019-11-22] MEDS: VANCOMYCIN 1.25 GM in SODIUM CHLORIDE 0.9% 250 ML IV SCH (03:56)
[2019-11-22 05:20] LABS: HEMATOCRIT 24.9 % (42-54); MEAN CORPUSCULAR HEMOGLOBIN 34.5 pg (27.0-33.0); MEAN CORPUSCULAR HGB CONC 35.7 g/dL (32.0-36.0); MEAN CORPUSCULAR VOLUME 96.5 fL (79-99); PLATELET COUNT (AUTO) 36 K/uL (130-400); RED BLOOD CELL COUNT(AUTO) 2.58 MIL/uL (4.50-6.20); RED CELL DISTRIBUTION WIDTH 17.2 % (11.0-15.5)
[2019-11-22 05:27] LABS: BILIRUBIN,TOTAL 1.5 mg/dL (0.2-1.0); CREATININE 1.4 mg/dL (0.5-1.5); MAGNESIUM 1.3 mg/dL (1.80-2.40); POTASSIUM 4.3 mmol/L (3.5-5.1)
[2019-11-22] MEDS: MAGNESIUM 2GM PREMIX 50ML 50 ML IV PRN (05:45)
[2019-11-22 06:02] LABS: BAND NEUTROPHILS % (MANUAL) 14 % (0-2); BASOPHILS % (MANUAL) 2 % (0-2); EOSINOPHILS % (MANUAL) 10 % (1-6); LYMPHOCYTES % (MANUAL) 22 % (22-44); MAN.DIFF COMMENT-IMPRESSION MANUAL DIFFERENTIAL; MONOCYTES % (MANUAL) 8 % (2-9); PLATELET MORPHOLOGY COMMENT MARKED DECREASE; REACTIVE LYMPHOCYTES 4 % (0-0); SEGMENTED NEUTROPHILS % 40 % (40-70)
[2019-11-22 08:06] VITALS: BP 131/65
[2019-11-22] MEDS: ZOSYN 3.375GM+NS 50ML 50 ML IV SCH ×3 (08:21→23:19)
[2019-11-22] MEDS: SPIRONOLACTONE 25 MG TAB PO SCH (08:22)
[2019-11-22] MEDS: PANTOPRAZOLE SODIUM 40 MG TABLET.DR PO SCH (08:22)
[2019-11-22] MEDS: FUROSEMIDE 40 MG TABLET PO SCH (08:22)
[2019-11-22] MEDS: FOLIC ACID 1 MG TABLET PO SCH (08:22)
[2019-11-22] MEDS: LACTULOSE 20 GM/30 ML UDCUP PO SCH ×2 (08:23→16:20)
[2019-11-22] MEDS: ACETAMINOPHEN-CODEINE 300/30MG TAB PO PRN (08:32)
[2019-11-22 11:08] VITALS: BP 134/62
--- NOTE | 2019-11-22 14:43 | NUR ---
DISCSSED DISCAHRGE AND AFTERCARE WITH PATIENT FORM PROVIDER TO FAX TO PT'S WORK TO SHOW ADMIT DATE. PT DISCOURAGED THAT HE LOST HIS JOB SECOND TO HOSPITALIZATION. ENCOURAGED TO CALL HR AND HR THE VERIFICATION OF HOSPITALIZATION ADDED TO HIS HR FILE IN CARE IN THE FURTHER HE CAN BE ELIGIBLE FOR [employer]. CM WILL FOLLOW. PT WILL BE DISCHARGED TO HOME TO DAY Addendum: 11/22/19 at 1445 by SANDRA GATES RN CM Amended: Links added.
[2019-11-22] MEDS ORDERED: LEVOFLOXACIN 500 MG/D5W 100 ML 100 ML IV SCH (15:15)
[2019-11-22 16:24] VITALS: BP 117/69
[2019-11-22 19:00] VITALS: BP 120/74
[2019-11-22] MEDS ORDERED: DIPHENHYDRAMINE HCL 25 MG CAPSULE ONE (22:11)
--- NOTE | 2019-11-22 22:52 | NUR ---
RASH NOTICED RASH ON PATIENTS ARMS AND CHEST/ABDOMEN, PATIENT HADNT NOTICED, NO ITCHING AT THIS TIME, CALLED DR. AGUILAR INFORMED OF PATIENTS CONDITION WITH ORDERS, BENADRYL 25 MG PO GIVEN
[2019-11-22 23:00] VITALS: BP 129/61
[2019-11-23 03:00] VITALS: BP 119/67
[2019-11-23 04:19] LABS: HEMATOCRIT 24.5 % (42-54); MEAN CORPUSCULAR HEMOGLOBIN 33.3 pg (27.0-33.0); MEAN CORPUSCULAR HGB CONC 35.1 g/dL (32.0-36.0); PLATELET COUNT (AUTO) 28 K/uL (130-400); RED BLOOD CELL COUNT(AUTO) 2.58 MIL/uL (4.50-6.20); WHITE BLOOD COUNT (AUTO) 4.3 K/uL (4.8-10.8)
[2019-11-23 04:24] LABS: CREATININE 1.2 mg/dL (0.5-1.5)
[2019-11-23] MEDS: ZOSYN 3.375GM+NS 50ML 50 ML IV SCH (06:31)
[2019-11-23] MEDS: PANTOPRAZOLE SODIUM 40 MG TABLET.DR PO SCH (06:31)
[2019-11-23 07:15] LABS: BAND NEUTROPHILS % (MANUAL) 19 % (0-2); EOSINOPHILS % (MANUAL) 10 % (1-6); LYMPHOCYTES % (MANUAL) 16 % (22-44); MAN.DIFF COMMENT-IMPRESSION MANUAL DIFFERENTIAL; MONOCYTES % (MANUAL) 12 % (2-9); SEGMENTED NEUTROPHILS % 43 % (40-70)
[2019-11-23 08:06] VITALS: BP 136/70
[2019-11-23] MEDS: DIPHENHYDRAMINE HCL 25 MG CAPSULE PO PRN ×2 (09:02→20:19)
[2019-11-23] MEDS: LACTULOSE 20 GM/30 ML UDCUP PO SCH ×2 (09:02→18:14)
[2019-11-23] MEDS: SPIRONOLACTONE 25 MG TAB PO SCH (09:02)
[2019-11-23] MEDS: FOLIC ACID 1 MG TABLET PO SCH (09:02)
[2019-11-23] MEDS: FUROSEMIDE 40 MG TABLET PO SCH (09:03)
[2019-11-23 11:07] VITALS: BP 129/74
[2019-11-23] MEDS: HYDROMORPHONE HCL 0.5 MG/0.5 ML ML IVP PRN (14:52)
--- NOTE | 2019-11-23 16:01 | NUR ---
RD FOLLOW UP Pt tolerating Heart healthy diet with no report of GI distress, good PO intake at 100%. Pt with PCM;Recommend 30mL Promod TID. RD provided Cirrhosis Nutrition Education. RD to continue to monitor. Please notify as additional nutrition concerns arise. thank you. Addendum: 11/23/19 at [address] RD Amended: Links added.
--- NOTE | 2019-11-23 16:04 | NUR ---
NUTRITION EDUCATION RD provided Cirrhosis Nutrition Education. RD provided reference materials and handouts. RD answered all of Pt questions. Pt verbalized understanding. RD encouraged Pt to notify as questions or concerns arise. Addendum: 11/23/19 at [address] RD Amended: Links added.
[2019-11-23 16:35] VITALS: BP 135/75
[2019-11-23 20:00] VITALS: BP 120/71
[2019-11-23] MEDS: SULFAMETHOX-TMP DS 800/160 TAB PO SCH (20:19)
[2019-11-23] MEDS: ACETAMINOPHEN-CODEINE 300/30MG TAB PO PRN (23:10)
[2019-11-24] VITALS: BP 125/63
[2019-11-24 04:00] VITALS: BP 110/65
[2019-11-24 06:10] LABS: HEMATOCRIT 23.8 % (42-54); MEAN CORPUSCULAR HEMOGLOBIN 33.5 pg (27.0-33.0); MEAN CORPUSCULAR HGB CONC 34.9 g/dL (32.0-36.0); PLATELET COUNT (AUTO) 31 K/uL (130-400); RED BLOOD CELL COUNT(AUTO) 2.48 MIL/uL (4.50-6.20); RED CELL DISTRIBUTION WIDTH 17.2 % (11.0-15.5)
[2019-11-24 06:18] LABS: CREATININE 1.1 mg/dL (0.5-1.5); POTASSIUM 3.9 mmol/L (3.5-5.1)
[2019-11-24] MEDS: PANTOPRAZOLE SODIUM 40 MG TABLET.DR PO SCH (06:24)
[2019-11-24 07:58] LABS: BAND NEUTROPHILS % (MANUAL) 2 % (0-2); EOSINOPHILS % (MANUAL) 8 % (1-6); LYMPHOCYTES % (MANUAL) 14 % (22-44); MAN.DIFF COMMENT-IMPRESSION MANUAL DIFFERENTIAL; MONOCYTES % (MANUAL) 17 % (2-9); SEGMENTED NEUTROPHILS % 59 % (40-70)
[2019-11-24 07:59] LABS: PLATELET MORPHOLOGY COMMENT MARKED DECREASE
[2019-11-24 08:00] VITALS: BP 125/68
[2019-11-24] MEDS: FUROSEMIDE 40 MG TABLET PO SCH (09:02)
[2019-11-24] MEDS: SULFAMETHOX-TMP DS 800/160 TAB PO SCH (09:02)
[2019-11-24] MEDS: LACTULOSE 20 GM/30 ML UDCUP PO SCH ×2 (09:02→17:06)
[2019-11-24] MEDS: SPIRONOLACTONE 25 MG TAB PO SCH (09:02)
[2019-11-24] MEDS: DIPHENHYDRAMINE HCL 25 MG CAPSULE PO PRN (09:02)
[2019-11-24] MEDS: FOLIC ACID 1 MG TABLET PO SCH (09:02)
[2019-11-24 11:00] VITALS: BP 118/59
--- NOTE | 2019-11-24 17:30 | NUR ---
DISCHARGE PATIENT GIVEN DISCHARGE INSTRUCTIONS VIA TEACH BACK. 20G PIV X2 TO LFA DISCONTINUED, TIPS INTACT. PATIENT TO FOLLOW UP WITH DR. AGUILAR AND DR. RAHMAN. DRESSING TO RLE CHANGED. DRESSING WITH MODERATE SEROUS DRAINAGE. NEW GAUZE APPLIED AND WRAPPED WITH CLARENCE WRAP. PATIENT/SPOUSE INSTRUCTED TO KEEP INCISION CLEAN AND DRY, MAY APPLY NEW DRESSING IF WET OR DISLODGED. WOUND DRESSINGS GIVEN TO PATIENT. S/S OF INFECTION TO REPORT TO DR. RAHMAN. PATIENT STABLE AT THIS TIME. PATIENT WHEELED TO [facility] BY TRISTIN RENEE ACCOMPANIED BY SPOUSE.
== END 2019-11-24 18:40 | disposition home or self-care (01) | DRG 580 ==
LOC: EDH 07:46 → EDHIP 12:08 → 4BH 13:52
PROVIDERS: ADMIT Internal Medicine Nephrology; ATTEND Internal Medicine Nephrology
PROC: 0J9N0ZZ Drainage of Right Lower Leg Subcutaneous Tissue and Fascia, Open Approach (ICD-10-PCS; principal; 2019-11-16 08:00)
PROC: 0KBS0ZZ Excision of Right Lower Leg Muscle, Open Approach (ICD-10-PCS; 2019-11-16 08:00)
PROC: 0KBS0ZZ Excision of Right Lower Leg Muscle, Open Approach (ICD-10-PCS; 2019-11-21)
PROC: 0KU Muscles, Supplement (ICD-10-PCS; 2019-11-21 12:00)
DX: L02.415 Cutaneous abscess of right lower limb (principal); R18.8 Other ascites; E87.2 Acidosis; L03.115 Cellulitis of right lower limb; K74.60 Unspecified cirrhosis of liver; E87.6 Hypokalemia; B19.20 Unspecified viral hepatitis C without hepatic coma; D64.9 Anemia, unspecified; I10 Essential (primary) hypertension; E83.42 Hypomagnesemia; F10.10 Alcohol abuse, uncomplicated; D69.6 Thrombocytopenia, unspecified; Z91.19 Patient's noncompliance with other medical treatment and regimen; Z87.442 Personal history of urinary calculi
CPT/HCPCS: 36415; 73701; 76882; 80048; 80053; 80076; 80202; 82948; 83735; 84100; 85025; 85027; 85610; 85730; 87040; 87070; 87076; 87077; 87186; 87205; C9113; G0378; J0330; J0690; J1170; J1956; J2001; J2175; J2250; J2405; J2543; J2704; J2710; J2765; J3010; J3370; J3475; J3490; J7030; J7040; J7070; J7120; Q0163; Q9967

== ENCOUNTER 2020-03-31 01:57 | Inpatient (IN) | payer OTHER ==
[~2020-03-31] VITALS: Ht 175.3 cm; Wt 143.8 kg
[~2020-03-31 01:57] MED LIST changes: +ACET1TAB12 PO; -LEVO500T2 PO
[2020-03-31] MEDS ORDERED: SODIUM CHLORIDE 0.9% 1000ML 2,000 ML IV ONE (02:33)
[2020-03-31] MEDS ORDERED: ZOSYN 3.375GM+NS 50ML 50 ML IV ONE (02:39)
[2020-03-31 02:57] LABS: BASOPHILS % (AUTO) 0.2 % (0.0-5.0); EOSINOPHILS % (AUTO) 0.5 % (0.0-8.0); HEMATOCRIT 30.5 % (42-54); LYMPHOCYTES % (AUTO) 8.5 % (21.0-51.0); MEAN CORPUSCULAR HEMOGLOBIN 35.6 pg (27.0-33.0); MEAN CORPUSCULAR HGB CONC 34.1 g/dL (32.0-36.0); MEAN CORPUSCULAR VOLUME 104.5 fL (79-99); MONOCYTES % (AUTO) 4.9 % (3.0-13.0); NEUTROPHILS % (AUTO) 85.5 % (40.0-77.0); NUCLEATED RED BLOOD CELLS 0.2 % (0.0-0.19); PLATELET COUNT (AUTO) 31 K/uL (130-400); RED BLOOD CELL COUNT(AUTO) 2.92 MIL/uL (4.50-6.20); RED CELL DISTRIBUTION WIDTH 18.6 % (11.0-15.5); WHITE BLOOD COUNT (AUTO) 8.5 K/uL (4.8-10.8)
[2020-03-31] MEDS ORDERED: VANCOMYCIN 1GM+NS 250ML 250 ML IV ONE (02:58)
[2020-03-31 03:03] LABS: CREATININE 3.5 mg/dL (0.5-1.5); POTASSIUM 3.4 mmol/L (3.5-5.1)
[2020-03-31 03:08] LABS: ALBUMIN 1.2 g/dL (3.5-5.0); BILIRUBIN,TOTAL 3.6 mg/dL (0.2-1.0); TOTAL PROTEIN, SERUM 5.9 g/dL (6.0-8.3)
[2020-03-31 03:19] LABS: B-TYPE NATRIURETIC PEPTIDE 174 pg/mL (0-100)
[2020-03-31 03:23] LABS: PLATELET MORPHOLOGY COMMENT MARKED DECREASE
[2020-03-31] MEDS ORDERED: DEXTROSE 50%-WATER 50 ML DISP.SYRIN IV ONE ×4 (03:23→23:37)
[2020-03-31 03:24] LABS: INR 1.43 (0.85-1.15); PARTIAL THROMBOPLASTIN TIME 46.6 SEC (26.3-35.5); PROTHROMBIN TIME 15.2 SEC (9.6-11.6)
[2020-03-31] MEDS ORDERED: NOREPINEPHRINE 4MG/NS 250ML 250 ML IV ONE ×8 (03:31→21:56)
[2020-03-31] MEDS ORDERED: FENTANYL CITRATE PF 50 MCG/1 ML 2ML VIAL ONE ×2 (04:23→06:04)
[2020-03-31] MEDS ORDERED: SODIUM CHLORIDE 0.9% 1000ML 1,000 ML IV ONE (04:24)
[2020-03-31] MEDS ORDERED: MAGNESIUM 2GM PREMIX 50ML 50 ML IV ONE (06:02)
[2020-03-31 06:36] LABS: ABG BASE EXCESS -19.6 mmol/L (-2.0-3.0); ABG HCO3 8.5 mmol/L (21.0-28.0); ABG OXYGEN SATURATION 95.9 % (95.0-99.0); ABG PCO2 27 mmHg (35-48)
[2020-03-31] MEDS ORDERED: SODIUM BICARB 50MEQ 50ML VIAL ONE (06:46)
[2020-03-31] MEDS ORDERED: DEXTROSE 5%-LACTATED RINGERS 1,000 ML IV ONE (06:47)
[2020-03-31] MEDS ORDERED: DEXTROSE 5 % AND 0.9 % NACL 1,000 ML IV SCH (07:15)
[2020-03-31] MEDS ORDERED: NOREPINEPHRINE 4MG/NS 250ML 250 ML IV SCH (07:30)
[2020-03-31] MEDS: VANCOMYCIN 750MG + NS 250 ML IV SCH ×2 (12:00)
[2020-03-31] MEDS ORDERED: TRAMADOL HCL 50 MG TABLET ONE (14:21)
[2020-03-31] MEDS ORDERED: LIDOCAINE 5% TOPICAL PATCH TP ONE (14:21)
[2020-03-31] MEDS ORDERED: ZOSYN 3.375GM+NS 50ML 50 ML IV SCH (15:30)
[2020-03-31] MEDS ORDERED: VANCOMYCIN PROTOCOL PER PHARMACY IV SCH (15:30)
[2020-03-31] MEDS ORDERED: ACETAMINOPHEN 325 MG TAB PO PRN (15:30)
[2020-03-31] MEDS ORDERED: HYDROMORPHONE HCL 0.5 MG/0.5 ML ML ONE ×2 (16:03→20:57)
[2020-03-31] MEDS ORDERED: COMPOUND IV REFRIGERATED 1 EACH IVSOLN MISC PRN (16:45)
[2020-03-31] MEDS ORDERED: VANCOMYCIN 2 GM in SODIUM CHLORIDE 0.9% 500ML 500 ML IV ONE (17:00)
[2020-03-31] MEDS ORDERED: MIDODRINE HCL 5 MG TABLET PO SCH ×2 (17:20→21:00)
--- NOTE | 2020-03-31 18:31 | NUR ---
INITIAL: Call placed to MARIKA Ade on facesheet. Discussed w her dcp. Per Ade pt lives w her and their 3children. Prior to admission he was independent w ambulation and ADLs. HE does not own any DME or receive services. Per Ade she is able to assist hime as needed and DCP is for home. CM to continue to follow and wait for Md recommendations. Addendum: 03/31/20 at 1837 by GIOVANI WHEATLEY CM Amended: Links added.
[2020-03-31] MEDS ORDERED: DEXTROSE 5 % AND 0.9 % NACL 1,000 ML IV ONE (20:28)
[2020-03-31] MEDS ORDERED: LACTULOSE 20 GM/30 ML UDCUP ONE (20:56)
[2020-03-31] MEDS ORDERED: ACETAMINOPHEN 325 MG TAB ONE (20:56)
[2020-03-31] MEDS ORDERED: MIDODRINE HCL 5 MG TABLET ONE (20:57)
[2020-03-31] MEDS: LACTULOSE 20 GM/30 ML UDCUP PO SCH (21:00)
[2020-03-31] MEDS ORDERED: VASOPRESSIN 20 UNITS/ML 1ML VIAL ONE (23:22)
[2020-03-31] MEDS ORDERED: SODIUM CHLORIDE 0.9% 100 ML IV ONE (23:23)
[2020-03-31] MEDS ORDERED: SODIUM BICARBONATE 650 MG TAB ONE (23:31)
[2020-03-31] MEDS ORDERED: HYDROMORPHONE HCL 0.5 MG/0.5 ML ML IVP PRN (23:45)
[2020-03-31] MEDS ORDERED: ZINC SULFATE 220 CAPSULE ONE (23:45)
[2020-03-31] MEDS: ASCORBIC ACID 500 MG TAB PO SCH (23:55)
[2020-03-31] MEDS ORDERED: SODIUM BICARBONATE 650 MG TAB PO SCH (23:55)
[2020-03-31] MEDS: FOLIC ACID/VITAMIN B COMP W-C 1 CAP TAB PO SCH (23:55)
[2020-03-31] MEDS: ZINC SULFATE 220 CAPSULE PO SCH (23:55)
[2020-04-01] VITALS (43 sets, daily range): BP systolic 63–129; BP diastolic 22–91
[2020-04-01 00:02] LABS: ABG BASE EXCESS -18.5 mmol/L (-2.0-3.0); ABG HCO3 10.3 mmol/L (21.0-28.0); ABG PCO2 34 mmHg (35-48)
[2020-04-01] MEDS: PHARMACY COMMUNICATION MISC SCH ×9 (01:00→22:30)
[2020-04-01 01:05] LABS: CREATININE 3.5 mg/dL (0.5-1.5); POTASSIUM 4.6 mmol/L (3.5-5.1)
[2020-04-01] MEDS: SODIUM BICARB 8.4% 50ML SYRING 150 MEQ in DEXTROSE 5%-WATER 1,000 ML IVP SCH ×3 (01:30→18:38)
[2020-04-01] MEDS ORDERED: SODIUM CHLORIDE 0.9% 50 ML IV ONE (02:54)
[2020-04-01] MEDS ORDERED: VASOPRESSIN 20 UNITS/ML 1ML VIAL ONE (02:54)
[2020-04-01] MEDS ORDERED: DEXTROSE 5 % AND 0.9 % NACL 1,000 ML IV ONE (03:04)
[2020-04-01] MEDS ORDERED: SODIUM BICARB 50MEQ 50ML VIAL ONE ×3 (03:17→17:46)
[2020-04-01] MEDS ORDERED: DEXTROSE 10%-WATER 1,000 ML IV ONE (03:39)
[2020-04-01 04:27] LABS: APPEARANCE,URINE Cloudy (CLEAR); BILIRUBIN,URINE Moderate (NEGATIVE); COLOR,URINE Dark Yellow (YELLOW); GLUCOSE, URINE (UA) Negative (NEGATIVE); KETONES,URINE Trace mg/dL (NEGATIVE); LEUKOCYTE ESTERASE ,URINE Trace (NEGATIVE); NITRATE,URINE Negative (NEGATIVE); OCCULT BLOOD,URINE Large (NEGATIVE); PH,URINE 5.5 (5.0-8.0); PROTEIN,URINE 300 mg/dL (NEGATIVE)
[2020-04-01 04:34] LABS: AMPHET/METH SCREEN,URINE NEGATIVE (NEGATIVE); BARBITURATE SCREEN, URINE NEGATIVE (NEGATIVE); BENZODIAZEPINES SCREEN,URINE NEGATIVE (NEGATIVE); CANNABINOID SCREEN,URINE NEGATIVE (NEGATIVE); COCAINE SCREEN,URINE NEGATIVE (NEGATIVE); OPIATE SCREEN,URINE POSITIVE (NEGATIVE); PHENCYCLIDINE SCREEN,URINE NEGATIVE (NEGATIVE)
[2020-04-01] MEDS: DEXTROSE 10%-WATER 1,000 ML IV SCH ×2 (05:00→21:00)
[2020-04-01] MEDS ORDERED: SODIUM BICARBONATE 650 MG TAB ONE ×3 (05:14→10:09)
[2020-04-01 05:22] LABS: AMORPHOUS SEDIMENT,UR Moderate /LPF (None Seen); BACTERIA,URINE Moderate /HPF (None Seen)
[2020-04-01] MEDS: SODIUM BICARBONATE 650 MG TAB PO SCH ×5 (06:00→22:00)
[2020-04-01] MEDS ORDERED: NOREPINEPHRINE 4MG/NS 250ML 250 ML IV ONE ×2 (06:41→09:42)
[2020-04-01] MEDS ORDERED: SODIUM BICARB 8.4% 50ML SYRINGE IVP SCH (08:00)
[2020-04-01] MEDS ORDERED: CEFTRIAXONE SODIUM 1 GM IVP SCH (08:00)
[2020-04-01] MEDS ORDERED: AZITHROMYCIN 500MG+NS 250ML 250 ML IV SCH (08:00)
[2020-04-01] MEDS ORDERED: LACTULOSE 20 GM/30 ML UDCUP ONE (08:35)
[2020-04-01] MEDS ORDERED: ASCORBIC ACID 500 MG TAB ONE (08:36)
[2020-04-01] MEDS ORDERED: ZINC SULFATE 220 CAPSULE ONE (08:37)
[2020-04-01] MEDS ORDERED: MIDODRINE HCL 5 MG TABLET ONE ×2 (08:38→12:25)
[2020-04-01] MEDS ORDERED: FAMOTIDINE/PF 20 MG/2 ML VIAL IV ONE (08:39)
[2020-04-01] MEDS: ASCORBIC ACID 500 MG TAB PO SCH (09:00)
[2020-04-01] MEDS: LACTULOSE 20 GM/30 ML UDCUP PO SCH ×2 (09:00→21:00)
[2020-04-01] MEDS: FOLIC ACID/VITAMIN B COMP W-C 1 CAP TAB PO SCH (09:00)
[2020-04-01] MEDS: ZINC SULFATE 220 CAPSULE PO SCH (09:00)
[2020-04-01] MEDS: FAMOTIDINE/PF 20 MG/2 ML VIAL IV SCH (09:00)
[2020-04-01] MEDS: FOLIC ACID 1 MG TABLET PO SCH (09:00)
[2020-04-01 09:54] LABS: HEMATOCRIT 30.5 % (42-54); MEAN CORPUSCULAR HEMOGLOBIN 35.2 pg (27.0-33.0); MEAN CORPUSCULAR HGB CONC 33.1 g/dL (32.0-36.0); MEAN CORPUSCULAR VOLUME 106.3 fL (79-99); NUCLEATED RED BLOOD CELLS 0.1 % (0.0-0.19); PLATELET COUNT (AUTO) 25 K/uL (130-400); RED BLOOD CELL COUNT(AUTO) 2.87 MIL/uL (4.50-6.20); RED CELL DISTRIBUTION WIDTH 18.5 % (11.0-15.5); WHITE BLOOD COUNT (AUTO) 21.8 K/uL (4.8-10.8)
[2020-04-01 09:59] LABS: ABG BASE EXCESS -17.9 mmol/L (-2.0-3.0); ABG HCO3 10.6 mmol/L (21.0-28.0); ABG OXYGEN SATURATION 90.9 % (95.0-99.0); ABG PCO2 34 mmHg (35-48)
[2020-04-01 10:13] LABS: CREATININE 4.2 mg/dL (0.5-1.5); PHOSPHORUS 9.1 mg/dL (2.5-4.9); POTASSIUM 5.2 mmol/L (3.5-5.1)
[2020-04-01] MEDS: CEFEPIME HCL 2 GM VIAL IVP SCH (10:46)
[2020-04-01 11:06] LABS: BAND NEUTROPHILS % (MANUAL) 29 % (0-2); LYMPHOCYTES % (MANUAL) 3 % (22-44); METAMYELOCYTES % 1 % (0-0); MONOCYTES % (MANUAL) 1 % (2-9); REACTIVE LYMPHOCYTES 8 % (0-0); SEGMENTED NEUTROPHILS % 58 % (40-70)
[2020-04-01 11:07] LABS: PLATELET MORPHOLOGY COMMENT MARKED DECREASE
[2020-04-01] MEDS ORDERED: DEXTROSE 50%-WATER 50 ML DISP.SYRIN IV ONE ×2 (11:22→17:40)
[2020-04-01] MEDS: VANCOMYCIN 750MG + NS 250 ML IV SCH ×2 (12:00)
[2020-04-01] MEDS ORDERED: ACETAMINOPHEN 325 MG TAB ONE (12:24)
[2020-04-01] MEDS ORDERED: CEFEPIME HCL 2 GM VIAL ONE (12:24)
[2020-04-01] MEDS ORDERED: SODIUM CHLORIDE 0.9% 100 ML IV ONE (12:27)
--- NOTE | 2020-04-01 14:00 | NUR ---
CALL TO PATIENT SPOUSE CRISTIAN FOR BETTER HX- PT HAS CIRRHOSIS, ON LACTULOR, SPIRONOLACTONE, AND FLOIC ACID OUTPATIENT, CRISTIAN STATES PROBABLY NOT TAKING. STATES FOLLOWED UP WITH JOSIAH MARTINEZ VIA PHONE- PICTURE OF LEG, POST LAST DISCHARGE. SPOUSE STATES HAS BEEN LOOKING AFTER THE WOUND HERSELF, TRYING TO KEEP IT CLEAN. NOT REALLY AWARE HOW SICK THE PATIENT IS. ELISHA DID NOT DISCUS, BUT DID SAY WOULD PASS THAT IMPORTANT PART OF THE HISTORY TO THE [facility] CONTACTED GEN RAO AT 1400, RE HX OF CIRRHOSIS, POSSIBLE HEPATORENAL SYNDROME HOME MED LACTULOSE, STATES MAYBE , PROB WILL START LACTULOSE. Addendum: 04/01/20 at 1552 by SANDRA GATES RN CM Amended: Links added.
[2020-04-01] MEDS ORDERED: ONDANSETRON HCL 4 MG/2 ML VIAL ONE (15:22)
[2020-04-01] MEDS ORDERED: SODIUM BICARB 50MEQ 50ML VIAL IV STA (15:45)
--- NOTE | 2020-04-01 15:52 | NUR ---
CHART REVIEWED, CALL TO RN Nabeel TEMPLE W PATIENT, CALL TO DR. AGUILAR AND TO MILLINERY DESIGNER MAIRA KAPADIA LIVER STATUS
[2020-04-01] MEDS ORDERED: CLINDAMYCIN 900 MG/D5% WATER 50 ML IV SCH (16:00)
[2020-04-01 17:38] LABS: ABG BASE EXCESS -14.3 mmol/L (-2.0-3.0); ABG HCO3 14.7 mmol/L (21.0-28.0); ABG OXYGEN SATURATION 98.5 % (95.0-99.0); ABG PCO2 48 mmHg (35-48)
[2020-04-01] MEDS ORDERED: SODIUM BICARB 50MEQ 50ML VIAL IV SCH (18:50)
[2020-04-01] MEDS ORDERED: DEXTROSE 50%-WATER 25 GM/50 ML VIAL IV SCH (18:50)
[2020-04-01] MEDS ORDERED: ALBUMIN (HUMAN) 25% 100 ML IV ONE (19:09)
[2020-04-01] MEDS ORDERED: ALBUMIN (HUMAN) 25% 50 ML IV SCH (19:15)
[2020-04-01] MEDS ORDERED: SODIUM CHLORIDE 0.9% 500ML 500 ML IV ONE (19:42)
--- NOTE | 2020-04-01 19:46 | NUR ---
RIGHT ARM PICC LINE ATTEMPTED, UNSUCCESSFUL. PTS LEFT ARM HAD ALREADY BEEN ASSESSED AND WAS EVEN MORE VASOCONSTRICTED. ATTEMPTED 4 STICKS, BUT VEINS ARE VASOCONSTRICTED AND FLATTEN WHEN ATTEMPTED TO ACCESS, LIKELY HYPOVOLEMIC WELL. ICU DR. RENE ADVISED AND REQUESTED PAPER INSPECTOR CALLED FOR CENTRAL LINE INSERTION INSTEAD. Sonja STOKES, PAPER INSPECTOR CALLED. ICU NURSE STARTED 20GA PERIPHERAL IN THE MEAN TIME TO ADMINISTER ALBUMIN.
[2020-04-01] MEDS ORDERED: MIDAZOLAM HCL 1 MG/ML 2ML VIAL ONE (20:09)
--- NOTE | 2020-04-01 20:35 | NUR ---
RIGHT INTERNAL JUGULAR CATH PLACED BY ENGINEERING GEOLOGIST. PLACEMENT CONFIRMED. NOTIFIED SPOUSE OF CHANGE.
--- NOTE | 2020-04-01 22:10 | NUR ---
PT NOTED TO BE BRADYCARDIC WITH ECG CHANGES WENT TO ASSES AND PT HAD BIPAP OFF. ATTEMPTED TO REAPPLY AND O2 SATURATIONS WERE NOT INCREASING. CALLED RESPIRATORY AND BEGAN TO BAG PT TO VENTILATE. RESP ARREST CALLED AND ED DOCTOR ARRIVE ON SCENE TO INTUBATE. ET TUBE SIZE7.5, 21 @ THE LIP, OG PLACED IMMEDIATELY BEGAN TO GET FECAL CONTENT FROM OROGASTRIC TUBE.
[2020-04-01] MEDS ORDERED: FENTANYL 2500MCG+NS 250ML 250 ML IV ONE (22:36)
[2020-04-01 22:54] LABS: HEMATOCRIT 25.9 % (42-54); MEAN CORPUSCULAR HEMOGLOBIN 35.4 pg (27.0-33.0); MEAN CORPUSCULAR HGB CONC 33.2 g/dL (32.0-36.0); MEAN CORPUSCULAR VOLUME 106.6 fL (79-99); NUCLEATED RED BLOOD CELLS 0.2 % (0.0-0.19); PLATELET COUNT (AUTO) 30 K/uL (130-400); RED BLOOD CELL COUNT(AUTO) 2.43 MIL/uL (4.50-6.20); RED CELL DISTRIBUTION WIDTH 19.2 % (11.0-15.5)
[2020-04-01 22:57] LABS: WHITE BLOOD COUNT (AUTO) 31.1 K/uL (4.8-10.8)
--- NOTE | 2020-04-01 23:05 | NUR ---
NOTED INCREASE IN BLOOD LIKE SECRETIONS FROM ET TUBE. VASSOPRESSERS INCREASED.
[2020-04-01 23:14] LABS: MAGNESIUM 1.7 mg/dL (1.80-2.40); PHOSPHORUS 10.9 mg/dL (2.5-4.9)
[2020-04-01 23:20] LABS: BAND NEUTROPHILS % (MANUAL) 45 % (0-2); METAMYELOCYTES % 8 % (0-0); MYELOCYTES % 3 % (0-0); SEGMENTED NEUTROPHILS % 44 % (40-70)
[2020-04-01 23:21] LABS: MAN.DIFF COMMENT-IMPRESSION MANUAL DIFFERENTIAL
[2020-04-01 23:46] LABS: ABG BASE EXCESS -10.1 mmol/L (-2.0-3.0); ABG HCO3 17.4 mmol/L (21.0-28.0); ABG OXYGEN SATURATION 93.1 % (95.0-99.0); ABG PCO2 46 mmHg (35-48)
[2020-04-02] VITALS (132 sets, daily range): BP systolic 48–164; BP diastolic 23–81
[2020-04-02] MEDS ORDERED: NOREPINEPHRINE BITARTRATE 1 MG/1 ML ML IV ONE ×2 (00:44→03:29)
[2020-04-02] MEDS: VASOPRESSIN 20 UNITS/NS 100ML IV SCH ×4 (01:34→17:57)
[2020-04-02] MEDS: SODIUM BICARBONATE 650 MG TAB PO SCH (02:00)
[2020-04-02] MEDS ORDERED: NOREPINEPHRINE BITARTRATE 32 MG in SODIUM CHLORIDE 0.9% 250 ML IV SCH (03:00)
[2020-04-02] MEDS ORDERED: SODIUM CHLORIDE 0.9% 250 ML IV ONE (03:29)
[2020-04-02 04:36] LABS: ABG BASE EXCESS -12.9 mmol/L (-2.0-3.0); ABG HCO3 14.7 mmol/L (21.0-28.0); ABG OXYGEN SATURATION 76.8 % (95.0-99.0); ABG PCO2 41 mmHg (35-48)
[2020-04-02] MEDS ORDERED: DEXTROSE 50%-WATER 50 ML DISP.SYRIN IV ONE ×2 (04:39→12:01)
[2020-04-02 05:11] LABS: HEMATOCRIT 24.8 % (42-54); MEAN CORPUSCULAR HEMOGLOBIN 35.9 pg (27.0-33.0); MEAN CORPUSCULAR HGB CONC 34.3 g/dL (32.0-36.0); MEAN CORPUSCULAR VOLUME 104.6 fL (79-99); NUCLEATED RED BLOOD CELLS 0.2 % (0.0-0.19); PLATELET COUNT (AUTO) 29 K/uL (130-400); RED BLOOD CELL COUNT(AUTO) 2.37 MIL/uL (4.50-6.20); RED CELL DISTRIBUTION WIDTH 18.7 % (11.0-15.5)
[2020-04-02 05:27] LABS: WHITE BLOOD COUNT (AUTO) 32.9 K/uL (4.8-10.8)
[2020-04-02 05:37] LABS: INR 2.05 (0.85-1.15); PARTIAL THROMBOPLASTIN TIME 51.2 SEC (26.3-35.5); PROTHROMBIN TIME 21.5 SEC (9.6-11.6)
[2020-04-02 05:46] LABS: ALBUMIN 1.7 g/dL (3.5-5.0); BILIRUBIN,TOTAL 5.6 mg/dL (0.2-1.0); CREATININE 4.3 mg/dL (0.5-1.5); MAGNESIUM 1.7 mg/dL (1.80-2.40); PHOSPHORUS 10.2 mg/dL (2.5-4.9); POTASSIUM 4.4 mmol/L (3.5-5.1); TOTAL PROTEIN, SERUM 5.4 g/dL (6.0-8.3); URIC ACID 6.6 mg/dL (2.6-7.2)
[2020-04-02] MEDS: SODIUM BICARB 8.4% 50ML SYRING 150 MEQ in DEXTROSE 5%-WATER 1,000 ML IVP SCH ×3 (06:14→23:30)
[2020-04-02 08:44] LABS: BAND NEUTROPHILS % (MANUAL) 3 % (0-2); MAN.DIFF COMMENT-IMPRESSION MANUAL DIFFERENTIAL; MONOCYTES % (MANUAL) 1 % (2-9); SEGMENTED NEUTROPHILS % 96 % (40-70)
[2020-04-02 08:45] LABS: PLATELET MORPHOLOGY COMMENT MARKED DECREASE
[2020-04-02] MEDS: FOLIC ACID 1 MG TABLET PO SCH (08:49)
[2020-04-02] MEDS: LACTULOSE 20 GM/30 ML UDCUP PO SCH ×2 (08:49→21:15)
[2020-04-02] MEDS: FAMOTIDINE/PF 20 MG/2 ML VIAL IV SCH (08:49)
[2020-04-02] MEDS: ZINC SULFATE 220 CAPSULE PO SCH (08:49)
[2020-04-02] MEDS: ASCORBIC ACID 500 MG TAB PO SCH (08:51)
[2020-04-02] MEDS: FOLIC ACID/VITAMIN B COMP W-C 1 CAP TAB PO SCH (08:51)
--- NOTE | 2020-04-02 09:29 | NUR ---
CHART CHECK COMPLETED. Pt IS A 40 Y.O. MALE ADMITTED SECONDARY TO SEPSIS, CELLULITIS, ACUTE RENAL FAILURE, HYPOGLYCEMIA, PUI COVID. Pt HAS A PAST MEDICAL HISTORY SIGNIFICANT FOR DM, HTN, VACULAR DISEASE, I&D TO WOUNDS. Pt INTUBATED ON 04/01/20, CONTINUES TO BE INTUBATED AT THIS TIME. RECOMMEND SKILLED SPEECH/SWALLOW EVALUATION 24 HOURS POST EXTUBATION. Addendum: 04/02/20 at 0932 by KODI GARZON, [facility] Amended: Links added.
[2020-04-02] MEDS ORDERED: SODIUM CHLORIDE 23.4% 30ML VL 154 MEQ in DEXTROSE 10%-WATER 961.5 ML IV PRN (10:15)
[2020-04-02 11:15] LABS: AMMONIA < 3 umol/L (11-32)
[2020-04-02] MEDS: CLINDAMYCIN 900 MG/D5% WATER 50 ML IV SCH ×3 (11:49→21:15)
[2020-04-02] MEDS ORDERED: DEXTROSE 10%-WATER 1,000 ML IV ONE (12:02)
[2020-04-02] MEDS: HYDROCORTISONE SOD SUCCINATE 100 MG/2 ML VIAL IV SCH ×3 (12:05→21:15)
[2020-04-02] MEDS: CEFEPIME HCL 2 GM VIAL IVP SCH (12:05)
[2020-04-02] MEDS: ALBUMIN (HUMAN) 25% 100 ML IV SCH ×4 (12:06→21:13)
[2020-04-02] MEDS: DEXTROSE 50%-WATER 50 ML DISP.SYRIN IV PRN (12:08)
[2020-04-02] MEDS: DEXTROSE 10%-WATER 1,000 ML IV SCH (12:09)
[2020-04-02] MEDS: VANCOMYCIN 750MG + NS 250 ML IV SCH ×2 (14:37)
[2020-04-02] MEDS ORDERED: FENTANYL 2500MCG+NS 250ML 250 ML IV ONE (17:05)
[2020-04-02] MEDS ORDERED: MIDAZOLAM 50MG-0.9% NS 50ML 50 ML BAG IV SCH (17:30)
[2020-04-02] MEDS ORDERED: FENTANYL CITRATE PF 0.05 MG/ML 1,000 MCG in SODIUM CHLORIDE 0.9% 100 ML IVPB SCH (17:30)
[2020-04-02] MEDS: SODIUM CHLORIDE 0.9% IV SCH (17:56)
[2020-04-02] MEDS: NOREPINEPHRINE BITARTRATE IV SCH (17:56)
[2020-04-03] VITALS (130 sets, daily range): BP systolic 66–142; BP diastolic 30–84
[2020-04-03] MEDS: CLINDAMYCIN 900 MG/D5% WATER 50 ML IV SCH ×2 (02:07→09:29)
[2020-04-03 03:45] LABS: ABG BASE EXCESS -7.2 mmol/L (-2.0-3.0); ABG HCO3 20.3 mmol/L (21.0-28.0); ABG OXYGEN SATURATION 89.2 % (95.0-99.0); ABG PCO2 48 mmHg (35-48)
[2020-04-03] MEDS: HYDROCORTISONE SOD SUCCINATE 100 MG/2 ML VIAL IV SCH ×4 (04:15→22:36)
[2020-04-03 07:27] LABS: BASOPHILS % (AUTO) 0.5 % (0.0-5.0); EOSINOPHILS % (AUTO) 0.1 % (0.0-8.0); LYMPHOCYTES % (AUTO) 6.3 % (21.0-51.0); MEAN CORPUSCULAR HEMOGLOBIN 35.5 pg (27.0-33.0); MEAN CORPUSCULAR HGB CONC 33.7 g/dL (32.0-36.0); MEAN CORPUSCULAR VOLUME 105.4 fL (79-99); MONOCYTES % (AUTO) 11.5 % (3.0-13.0); NEUTROPHILS % (AUTO) 74.6 % (40.0-77.0); NUCLEATED RED BLOOD CELLS 1.4 % (0.0-0.19); PLATELET COUNT (AUTO) 26 K/uL (130-400); RED BLOOD CELL COUNT(AUTO) 1.86 MIL/uL (4.50-6.20)
[2020-04-03 07:41] LABS: WHITE BLOOD COUNT (AUTO) 31.8 K/uL (4.8-10.8)
[2020-04-03 07:42] LABS: HEMATOCRIT 19.6 % (42-54)
[2020-04-03 07:44] LABS: ALBUMIN 2.3 g/dL (3.5-5.0); BILIRUBIN,TOTAL 9.9 mg/dL (0.2-1.0); CREATININE 5.8 mg/dL (0.5-1.5); PHOSPHORUS 9.8 mg/dL (2.5-4.9); POTASSIUM 5.1 mmol/L (3.5-5.1); TOTAL PROTEIN, SERUM 5.4 g/dL (6.0-8.3)
[2020-04-03 08:46] LABS: BAND NEUTROPHILS % (MANUAL) 4 % (0-2); BASOPHILS % (MANUAL) 1 % (0-2); LYMPHOCYTES % (MANUAL) 7 % (22-44); MAN.DIFF COMMENT-IMPRESSION MANUAL DIFFERENTIAL; MONOCYTES % (MANUAL) 8 % (2-9); SEGMENTED NEUTROPHILS % 80 % (40-70)
[2020-04-03] MEDS: LACTULOSE 20 GM/30 ML UDCUP PO SCH ×2 (09:21→22:35)
[2020-04-03] MEDS: FAMOTIDINE/PF 20 MG/2 ML VIAL IV SCH (09:21)
[2020-04-03] MEDS: CEFEPIME HCL 2 GM VIAL IVP SCH (09:21)
[2020-04-03] MEDS: ASCORBIC ACID 500 MG TAB PO SCH (09:21)
[2020-04-03] MEDS: ZINC SULFATE 220 CAPSULE PO SCH (09:21)
[2020-04-03] MEDS: FOLIC ACID/VITAMIN B COMP W-C 1 CAP TAB PO SCH (09:21)
[2020-04-03] MEDS: FOLIC ACID 1 MG TABLET PO SCH (09:22)
[2020-04-03] MEDS ORDERED: SODIUM CHLORIDE 0.9% 250 ML IV ONE (10:55)
[2020-04-03] MEDS: MIDAZOLAM 50MG-0.9% NS 50ML 50 ML IV SCH (13:10)
[2020-04-03] MEDS: MEROPENEM 1 GM VIAL IVP SCH (13:10)
[2020-04-03] MEDS: FENTANYL 2500MCG+NS 250ML 250 ML IV SCH ×2 (13:10→22:37)
[2020-04-03] MEDS: SODIUM BICARB 8.4% 50ML SYRING 150 MEQ in DEXTROSE 5%-WATER 1,000 ML IVP SCH ×2 (13:13→17:54)
[2020-04-03] MEDS: VANCOMYCIN 750MG + NS 250 ML IV SCH ×2 (13:14)
[2020-04-03] MEDS ORDERED: PHARMACY COMMUNICATION MISC SCH (13:45)
[2020-04-03] MEDS: SODIUM CHLORIDE 0.9% IV SCH (13:58)
[2020-04-03] MEDS: NOREPINEPHRINE BITARTRATE IV SCH (13:58)
[2020-04-03] MEDS ORDERED: BACITRACIN 28.4 GM OINT TP SCH (14:00)
[2020-04-03] MEDS: DEXTROSE 10%-WATER 1,000 ML IV SCH (14:23)
--- NOTE | 2020-04-03 16:00 | NUR ---
PT WITH NON SUSTAINED TACHYCARDIA, INCREASED FENTANYL FOR PAIN, AND LAVAGED ET TUBE, NOTED WITH BLOOD TINGED SECRETIONS Addendum: 04/04/20 at 0734 by JOHNNA MANZANO RN DR EDGARD BROOKS
[2020-04-03 17:00] LABS: HEMATOCRIT 22.2 % (42-54)
[2020-04-03] MEDS: HONEY 1 APPL/ML TUBE TP SCH (17:28)
[2020-04-03] MEDS ORDERED: CALCIUM GLUCONATE 1 GM/10 ML VIAL IV ONE (21:56)
[2020-04-03] MEDS ORDERED: CALCIUM GLUCONATE 1 GM/10 ML VIAL IV SCH (22:00)
[2020-04-04] VITALS (69 sets, daily range): BP systolic 62–153; BP diastolic 33–86
[2020-04-04] MEDS: MEROPENEM 1 GM VIAL IVP SCH ×2 (00:37→14:50)
[2020-04-04] MEDS: NOREPINEPHRINE BITARTRATE IV SCH ×2 (00:39→11:25)
[2020-04-04] MEDS: SODIUM CHLORIDE 0.9% IV SCH ×2 (00:39→11:25)
[2020-04-04 03:52] LABS: BASOPHILS % (AUTO) 0.4 % (0.0-5.0); EOSINOPHILS % (AUTO) 0.2 % (0.0-8.0); LYMPHOCYTES % (AUTO) 7.1 % (21.0-51.0); MEAN CORPUSCULAR HEMOGLOBIN 34.4 pg (27.0-33.0); MEAN CORPUSCULAR HGB CONC 34.1 g/dL (32.0-36.0); MEAN CORPUSCULAR VOLUME 100.9 fL (79-99); MONOCYTES % (AUTO) 16.1 % (3.0-13.0); NEUTROPHILS % (AUTO) 69.6 % (40.0-77.0); NUCLEATED RED BLOOD CELLS 3.4 % (0.0-0.19); PLATELET COUNT (AUTO) 29 K/uL (130-400); RED BLOOD CELL COUNT(AUTO) 2.18 MIL/uL (4.50-6.20); RED CELL DISTRIBUTION WIDTH 21.3 % (11.0-15.5)
[2020-04-04] MEDS: SODIUM BICARB 8.4% 50ML SYRING 150 MEQ in DEXTROSE 5%-WATER 1,000 ML IVP SCH ×3 (04:00→20:50)
[2020-04-04] MEDS: HYDROCORTISONE SOD SUCCINATE 100 MG/2 ML VIAL IV SCH ×4 (04:01→20:50)
[2020-04-04 04:03] LABS: WHITE BLOOD COUNT (AUTO) 33.2 K/uL (4.8-10.8)
[2020-04-04 04:13] LABS: ALBUMIN 2.1 g/dL (3.5-5.0); BILIRUBIN,TOTAL 14.3 mg/dL (0.2-1.0); CREATININE 6.5 mg/dL (0.5-1.5); MAGNESIUM 2.2 mg/dL (1.80-2.40); POTASSIUM 4.7 mmol/L (3.5-5.1); TOTAL PROTEIN, SERUM 5.5 g/dL (6.0-8.3)
--- NOTE | 2020-04-04 07:34 | NUR ---
PER DR RENE, ET TUBE PUSHED IN 2 CM
[2020-04-04] MEDS: FAMOTIDINE/PF 20 MG/2 ML VIAL IV SCH (08:26)
[2020-04-04] MEDS: ASCORBIC ACID 500 MG TAB PO SCH (08:26)
[2020-04-04] MEDS: LACTULOSE 20 GM/30 ML UDCUP PO SCH ×2 (08:26→20:50)
[2020-04-04] MEDS: ZINC SULFATE 220 CAPSULE PO SCH (08:26)
[2020-04-04] MEDS: FOLIC ACID 1 MG TABLET PO SCH (08:27)
[2020-04-04] MEDS: FOLIC ACID/VITAMIN B COMP W-C 1 CAP TAB PO SCH (08:27)
[2020-04-04] MEDS: VANCOMYCIN 750MG + NS 250 ML IV SCH ×2 (11:28)
[2020-04-04] MEDS: FENTANYL 2500MCG+NS 250ML 250 ML IV SCH (14:02)
--- NOTE | 2020-04-04 16:00 | NUR ---
UPDATED ON PTS CONDITION. PT FACE AND BODY VERY SWOLLEN. ON PRESSORS, NOT ABLE TO TOLERATE DIALYSIS. NO URINE OUTPUT, POOR PROGNOSIS PER DR TOLENTINO COMUNICATED TO .
[2020-04-04] MEDS: HONEY 1 APPL/ML TUBE TP SCH (16:20)
[2020-04-04] MEDS: DEXTROSE 10%-WATER 1,000 ML IV SCH (18:21)
[2020-04-05] VITALS (78 sets, daily range): BP systolic 67–185; BP diastolic 30–99
[2020-04-05] MEDS: MEROPENEM 1 GM VIAL IVP SCH ×3 (02:05→23:22)
[2020-04-05] MEDS: HYDROCORTISONE SOD SUCCINATE 100 MG/2 ML VIAL IV SCH ×4 (03:28→20:33)
[2020-04-05] MEDS: FENTANYL 2500MCG+NS 250ML 250 ML IV SCH ×2 (03:30→16:50)
[2020-04-05 03:46] LABS: BASOPHILS % (AUTO) 0.1 % (0.0-5.0); EOSINOPHILS % (AUTO) 0.2 % (0.0-8.0); HEMATOCRIT 21.2 % (42-54); LYMPHOCYTES % (AUTO) 5.8 % (21.0-51.0); MEAN CORPUSCULAR HEMOGLOBIN 34.6 pg (27.0-33.0); MEAN CORPUSCULAR HGB CONC 35.4 g/dL (32.0-36.0); MEAN CORPUSCULAR VOLUME 97.7 fL (79-99); MONOCYTES % (AUTO) 12.2 % (3.0-13.0); NEUTROPHILS % (AUTO) 71.5 % (40.0-77.0); NUCLEATED RED BLOOD CELLS 2.7 % (0.0-0.19); PLATELET COUNT (AUTO) 25 K/uL (130-400); RED BLOOD CELL COUNT(AUTO) 2.17 MIL/uL (4.50-6.20); RED CELL DISTRIBUTION WIDTH 20.4 % (11.0-15.5)
[2020-04-05 03:52] LABS: WHITE BLOOD COUNT (AUTO) 38.9 K/uL (4.8-10.8)
[2020-04-05 04:04] LABS: BAND NEUTROPHILS % (MANUAL) 11 % (0-2); LYMPHOCYTES % (MANUAL) 4 % (22-44); METAMYELOCYTES % 5 % (0-0); MONOCYTES % (MANUAL) 11 % (2-9); MYELOCYTES % 1 % (0-0); PROMYELOCYTES % 3 (0-0); SEGMENTED NEUTROPHILS % 65 % (40-70)
[2020-04-05 04:05] LABS: MAN.DIFF COMMENT-IMPRESSION MANUAL DIFFERENTIAL
[2020-04-05 04:09] LABS: ALBUMIN 1.9 g/dL (3.5-5.0); CREATININE 7.2 mg/dL (0.5-1.5); POTASSIUM 4.3 mmol/L (3.5-5.1); TOTAL PROTEIN, SERUM 5.6 g/dL (6.0-8.3)
[2020-04-05 04:15] LABS: BILIRUBIN,TOTAL 17.2 mg/dL (0.2-1.0)
[2020-04-05] MEDS: MIDAZOLAM 50MG-0.9% NS 50ML 50 ML IV SCH (04:43)
[2020-04-05] MEDS: VASOPRESSIN 20 UNITS/NS 100ML IV SCH ×4 (04:44→23:20)
--- NOTE | 2020-04-05 05:01 | NUR ---
Critical Care Results After calling Answering services for [employer], A CONSULTING SME called back and discussed labs and trends, she stated she would contact the CONSULTING SME that;s coming to see this patient. No new orders noted.
[2020-04-05] MEDS: SODIUM BICARB 8.4% 50ML SYRING 150 MEQ in DEXTROSE 5%-WATER 1,000 ML IVP SCH ×2 (06:04→16:39)
--- NOTE | 2020-04-05 08:00 | NUR ---
PT VERY HEMODYNAMICALLY UNSTABLE. DR RENE IN TO SEE PT. AWARE OF CRITICAL STATUS. PT WITH PAUSES WHEN HE IS TURNED
[2020-04-05] MEDS: ASCORBIC ACID 500 MG TAB PO SCH (08:35)
[2020-04-05] MEDS: ZINC SULFATE 220 CAPSULE PO SCH (08:36)
[2020-04-05] MEDS: FOLIC ACID 1 MG TABLET PO SCH (08:36)
[2020-04-05] MEDS: FOLIC ACID/VITAMIN B COMP W-C 1 CAP TAB PO SCH (08:36)
[2020-04-05] MEDS: LACTULOSE 20 GM/30 ML UDCUP PO SCH ×2 (08:36→20:33)
[2020-04-05] MEDS: FAMOTIDINE/PF 20 MG/2 ML VIAL IV SCH (08:36)
[2020-04-05] MEDS: DEXTROSE 10%-WATER 1,000 ML IV SCH (09:51)
--- NOTE | 2020-04-05 10:15 | NUR ---
LOW SPO2, PT WITH BLOOD CLOTS TO ET TUBE. SUCTIONED AND LAVAGED
--- NOTE | 2020-04-05 11:26 | NUR ---
UPDATED ON PTS CONDITION. POOR PROGNOSIS.
[2020-04-05] MEDS: VANCOMYCIN 750MG + NS 250 ML IV SCH ×2 (12:07)
[2020-04-05] MEDS: HONEY 1 APPL/ML TUBE TP SCH (16:39)
--- NOTE | 2020-04-05 18:33 | NUR ---
UPDATED ON PTS STATUS
[2020-04-06] VITALS (64 sets, daily range): BP systolic 67–193; BP diastolic 29–94
[2020-04-06] MEDS: FENTANYL 2500MCG+NS 250ML 250 ML IV SCH (01:28)
[2020-04-06] MEDS: SODIUM BICARB 8.4% 50ML SYRING 150 MEQ in DEXTROSE 5%-WATER 1,000 ML IVP SCH ×2 (01:29→10:18)
[2020-04-06] MEDS: DEXTROSE 10%-WATER 1,000 ML IV SCH (02:18)
[2020-04-06 04:27] LABS: MEAN CORPUSCULAR HEMOGLOBIN 34.6 pg (27.0-33.0); MEAN CORPUSCULAR HGB CONC 35.5 g/dL (32.0-36.0); MEAN CORPUSCULAR VOLUME 97.6 fL (79-99); NUCLEATED RED BLOOD CELLS 3.7 % (0.0-0.19); PLATELET COUNT (AUTO) 21 K/uL (130-400); RED BLOOD CELL COUNT(AUTO) 2.08 MIL/uL (4.50-6.20)
[2020-04-06 04:31] LABS: HEMATOCRIT 20.3 % (42-54); WHITE BLOOD COUNT (AUTO) 44.6 K/uL (4.8-10.8)
[2020-04-06] MEDS: HYDROCORTISONE SOD SUCCINATE 100 MG/2 ML VIAL IV SCH ×4 (04:37→22:44)
[2020-04-06 04:46] LABS: ALBUMIN 1.8 g/dL (3.5-5.0); CREATININE 7.8 mg/dL (0.5-1.5); MAGNESIUM 1.7 mg/dL (1.80-2.40); PHOSPHORUS 8.8 mg/dL (2.5-4.9); POTASSIUM 4.7 mmol/L (3.5-5.1); TOTAL PROTEIN, SERUM 5.5 g/dL (6.0-8.3)
[2020-04-06 04:49] LABS: BILIRUBIN,TOTAL 18.8 mg/dL (0.2-1.0)
[2020-04-06 05:01] LABS: BAND NEUTROPHILS % (MANUAL) 9 % (0-2); LYMPHOCYTES % (MANUAL) 2 % (22-44); METAMYELOCYTES % 3 % (0-0); MONOCYTES % (MANUAL) 4 % (2-9); MYELOCYTES % 1 % (0-0); PROMYELOCYTES % 1 (0-0); SEGMENTED NEUTROPHILS % 80 % (40-70)
[2020-04-06 05:02] LABS: MAN.DIFF COMMENT-IMPRESSION MANUAL DIFFERENTIAL
[2020-04-06 07:59] LABS: ABG BASE EXCESS 3.6 mmol/L (-2.0-3.0); ABG HCO3 31.5 mmol/L (21.0-28.0); ABG OXYGEN SATURATION 93.4 % (95.0-99.0); ABG PCO2 62 mmHg (35-48)
[2020-04-06] MEDS: ASCORBIC ACID 500 MG TAB PO SCH (08:33)
[2020-04-06] MEDS: LACTULOSE 20 GM/30 ML UDCUP PO SCH ×2 (08:33→20:48)
[2020-04-06] MEDS: FOLIC ACID 1 MG TABLET PO SCH (08:33)
[2020-04-06] MEDS: FAMOTIDINE/PF 20 MG/2 ML VIAL IV SCH (08:33)
[2020-04-06] MEDS: FOLIC ACID/VITAMIN B COMP W-C 1 CAP TAB PO SCH (08:33)
[2020-04-06] MEDS: ZINC SULFATE 220 CAPSULE PO SCH (08:33)
[2020-04-06] MEDS: MEROPENEM 1 GM VIAL IVP SCH (12:28)
[2020-04-06] MEDS: VANCOMYCIN 750MG + NS 250 ML IV SCH ×2 (12:29)
[2020-04-06] MEDS: HONEY 1 APPL/ML TUBE TP SCH (16:41)
--- NOTE | 2020-04-06 20:00 | NUR ---
RECEIVED CALL FROM PT' SPOUSE, CRISTIAN. SHE LEFT A NEW PHONE NUMBER [phone], AND I UPDATED ON STATUS.
[2020-04-06] MEDS: MIDAZOLAM 50MG-0.9% NS 50ML 50 ML IV SCH (21:14)
--- NOTE | 2020-04-06 23:00 | NUR ---
PATIENT WAS RECEIVED IN BED, SUPINE, HOB ELEVATED. PT ON VENTILATOR AC TV 500, FIO2 85% , PEEP 5, RATE 20. SATURATIONS 92%. PATIENT ON FENTANYL 150MCG/H (15 ML), VERSED 2 MG/HR (2ML), LEVOPHED 0.19 MCG/KG/MIN (9.52ML), VASOPRESSIN 0.04 UNITS/MIN (4.8 ML) D10 40 ML, BICARB DRIP 75 ML. ASSESSMENT COMPLETED. PATIENT IS FULL CODE. WILL CONT TO MONITOR.
[2020-04-07] VITALS (40 sets, daily range): BP systolic 101–133; BP diastolic 38–65
[2020-04-07] MEDS: MEROPENEM 1 GM VIAL IVP SCH ×2 (01:29→12:18)
[2020-04-07] MEDS: SODIUM BICARB 8.4% 50ML SYRING 150 MEQ in DEXTROSE 5%-WATER 1,000 ML IVP SCH ×3 (01:29→17:40)
[2020-04-07] MEDS: VASOPRESSIN 20 UNITS/NS 100ML IV SCH ×2 (01:47)
[2020-04-07] MEDS: HYDROCORTISONE SOD SUCCINATE 100 MG/2 ML VIAL IV SCH ×4 (04:34→22:20)
[2020-04-07 05:52] LABS: BASOPHILS % (AUTO) 0.1 % (0.0-5.0); EOSINOPHILS % (AUTO) 0.2 % (0.0-8.0); LYMPHOCYTES % (AUTO) 5.2 % (21.0-51.0); MEAN CORPUSCULAR HEMOGLOBIN 34.8 pg (27.0-33.0); MEAN CORPUSCULAR HGB CONC 34.8 g/dL (32.0-36.0); MONOCYTES % (AUTO) 5.2 % (3.0-13.0); NEUTROPHILS % (AUTO) 72.3 % (40.0-77.0); NUCLEATED RED BLOOD CELLS 10.3 % (0.0-0.19); PLATELET COUNT (AUTO) 29 K/uL (130-400); RED BLOOD CELL COUNT(AUTO) 2.01 MIL/uL (4.50-6.20); RED CELL DISTRIBUTION WIDTH 19.5 % (11.0-15.5)
[2020-04-07 06:08] LABS: HEMATOCRIT 20.1 % (42-54); WHITE BLOOD COUNT (AUTO) 48.2 K/uL (4.8-10.8)
[2020-04-07 06:43] LABS: ALBUMIN 1.6 g/dL (3.5-5.0); MAGNESIUM 2.2 mg/dL (1.80-2.40); PHOSPHORUS 9.7 mg/dL (2.5-4.9); POTASSIUM 4.7 mmol/L (3.5-5.1); TOTAL PROTEIN, SERUM 5.3 g/dL (6.0-8.3)
[2020-04-07 06:51] LABS: CREATININE 8.4 mg/dL (0.5-1.5)
[2020-04-07] MEDS: FENTANYL 2500MCG+NS 250ML 250 ML IV SCH ×2 (08:22→20:07)
[2020-04-07] MEDS: ZINC SULFATE 220 CAPSULE PO SCH (08:22)
[2020-04-07] MEDS: FOLIC ACID 1 MG TABLET PO SCH (08:22)
[2020-04-07] MEDS: LACTULOSE 20 GM/30 ML UDCUP PO SCH ×2 (08:22→20:05)
[2020-04-07] MEDS: ASCORBIC ACID 500 MG TAB PO SCH (08:22)
[2020-04-07] MEDS: FOLIC ACID/VITAMIN B COMP W-C 1 CAP TAB PO SCH (08:22)
[2020-04-07] MEDS: DEXTROSE 10%-WATER 1,000 ML IV SCH (08:23)
[2020-04-07] MEDS: SODIUM CHLORIDE 0.9% IV SCH (09:26)
[2020-04-07] MEDS: NOREPINEPHRINE BITARTRATE IV SCH (09:26)
[2020-04-07] MEDS: FAMOTIDINE/PF 20 MG/2 ML VIAL IV SCH (09:26)
[2020-04-07] MEDS: VANCOMYCIN 750MG + NS 250 ML IV SCH ×2 (12:00)
[2020-04-07] MEDS: HONEY 1 APPL/ML TUBE TP SCH (15:53)
[2020-04-07] MEDS: MIDAZOLAM 50MG-0.9% NS 50ML 50 ML IV SCH (20:06)
[2020-04-08] VITALS (46 sets, daily range): BP systolic 84–124; BP diastolic 26–54
[2020-04-08] MEDS: MEROPENEM 1 GM VIAL IVP SCH ×2 (01:27→15:46)
[2020-04-08 03:59] LABS: ABG BASE EXCESS 5.5 mmol/L (-2.0-3.0); ABG HCO3 32.6 mmol/L (21.0-28.0); ABG OXYGEN SATURATION 94.9 % (95.0-99.0); ABG PCO2 58 mmHg (35-48)
[2020-04-08] MEDS: HYDROCORTISONE SOD SUCCINATE 100 MG/2 ML VIAL IV SCH ×4 (04:15→21:48)
[2020-04-08 05:47] LABS: BASOPHILS % (AUTO) 0.6 % (0.0-5.0); EOSINOPHILS % (AUTO) 0.3 % (0.0-8.0); LYMPHOCYTES % (AUTO) 4.6 % (21.0-51.0); MEAN CORPUSCULAR HEMOGLOBIN 35.4 pg (27.0-33.0); MEAN CORPUSCULAR HGB CONC 36.2 g/dL (32.0-36.0); MEAN CORPUSCULAR VOLUME 97.9 fL (79-99); MONOCYTES % (AUTO) 5.5 % (3.0-13.0); NUCLEATED RED BLOOD CELLS 18.4 % (0.0-0.19); PLATELET COUNT (AUTO) 47 K/uL (130-400); RED BLOOD CELL COUNT(AUTO) 1.92 MIL/uL (4.50-6.20); RED CELL DISTRIBUTION WIDTH 19.2 % (11.0-15.5)
[2020-04-08 06:03] LABS: WHITE BLOOD COUNT (AUTO) 44.4 K/uL (4.8-10.8)
[2020-04-08 06:04] LABS: HEMATOCRIT 18.8 % (42-54)
[2020-04-08 06:38] LABS: ALBUMIN 1.5 g/dL (3.5-5.0); MAGNESIUM 2.3 mg/dL (1.80-2.40); PHOSPHORUS 10.7 mg/dL (2.5-4.9); POTASSIUM 5.4 mmol/L (3.5-5.1); TOTAL PROTEIN, SERUM 5.3 g/dL (6.0-8.3)
[2020-04-08 06:50] LABS: BILIRUBIN,DIRECT 17.6 mg/dL (0.0-0.3); BILIRUBIN,TOTAL 24.1 mg/dL (0.2-1.0); CREATININE 9.1 mg/dL (0.5-1.5)
[2020-04-08] MEDS ORDERED: PROPOFOL 1000 MG/100 ML 0 ML IV ONE (07:29)
--- NOTE | 2020-04-08 09:00 | NUR ---
BROTHER BRIANNA CALLED FOR UPDATE, OK WITH SPOUSE TO GIVE INFO ON PTS CONDITION
[2020-04-08] MEDS: LACTULOSE 20 GM/30 ML UDCUP PO SCH ×2 (09:42→21:48)
[2020-04-08] MEDS: FOLIC ACID/VITAMIN B COMP W-C 1 CAP TAB PO SCH (09:42)
[2020-04-08] MEDS: ASCORBIC ACID 500 MG TAB PO SCH (09:42)
[2020-04-08] MEDS: FAMOTIDINE/PF 20 MG/2 ML VIAL IV SCH (09:42)
[2020-04-08] MEDS: FOLIC ACID 1 MG TABLET PO SCH (09:42)
[2020-04-08] MEDS: ZINC SULFATE 220 CAPSULE PO SCH (09:45)
--- NOTE | 2020-04-08 10:45 | NUR ---
SPOKE TO FLAKO FOSTER. DECISION TO MAKE DNR AT THIS TIME.
[2020-04-08] MEDS: VANCOMYCIN 750MG + NS 250 ML IV SCH ×2 (12:00)
[2020-04-08] MEDS: NOREPINEPHRINE BITARTRATE IV SCH (15:44)
[2020-04-08] MEDS: SODIUM CHLORIDE 0.9% IV SCH (15:44)
--- NOTE | 2020-04-08 16:40 | NUR ---
RDSCREEN - LOS X 8 Pt admitted with Sepsis. Positive COVID-19. Poor prognosis per EMR. Severe Edema, renal failure, decompensated Cirrhosis. Intubated x 7 days, mechanical ventilation. WBC 44.4, K 5.4, BUN 136, Cr 9.1, GFR 7. RN report of Pt with draining ileus. TF not recommended. No to alternative measures nutrition. DNR placement. RD to follow up for POC.
[2020-04-08] MEDS ORDERED: SODIUM POLYSTYRENE SULFONATE 15 GM/60 ML ML PO SCH (17:45)
[2020-04-08] MEDS ORDERED: SODIUM BICARB 50MEQ 50ML VIAL IV ONE (17:45)
[2020-04-08] MEDS ORDERED: CALCIUM GLUCONATE 1 GM/10 ML VIAL IV SCH (17:45)
[2020-04-08] MEDS ORDERED: DEXTROSE 50%-WATER 25 GM/50 ML VIAL IV SCH (17:45)
[2020-04-08] MEDS ORDERED: INSULIN HUMULIN R 100 UNIT/ML 3ML SQ SCH (18:15)
[2020-04-08] MEDS ORDERED: INSULIN HUMULIN R 100 UNIT/ML 3ML ONE (18:24)
[2020-04-08] MEDS: DEXTROSE 50%-WATER 50 ML DISP.SYRIN IV PRN (18:34)
[2020-04-08] MEDS: DEXTROSE 10%-WATER 1,000 ML IV SCH (18:35)
[2020-04-08] MEDS: HONEY 1 APPL/ML TUBE TP SCH (18:35)
[2020-04-08] MEDS: SODIUM BICARB 8.4% 50ML SYRING 150 MEQ in DEXTROSE 5%-WATER 1,000 ML IVP SCH (21:40)
[2020-04-09] VITALS (44 sets, daily range): BP systolic 54–136; BP diastolic 23–66
[2020-04-09] MEDS: MEROPENEM 1 GM VIAL IVP SCH ×2 (01:26→11:56)
[2020-04-09] MEDS: HYDROCORTISONE SOD SUCCINATE 100 MG/2 ML VIAL IV SCH ×4 (04:33→21:57)
[2020-04-09 08:05] LABS: MEAN CORPUSCULAR HEMOGLOBIN 36.4 pg (27.0-33.0); MEAN CORPUSCULAR HGB CONC 36.2 g/dL (32.0-36.0); MEAN CORPUSCULAR VOLUME 100.5 fL (79-99); NUCLEATED RED BLOOD CELLS 16.4 % (0.0-0.19); PLATELET COUNT (AUTO) 35 K/uL (130-400); RED BLOOD CELL COUNT(AUTO) 1.98 MIL/uL (4.50-6.20); RED CELL DISTRIBUTION WIDTH 22.4 % (11.0-15.5)
[2020-04-09 08:15] LABS: WHITE BLOOD COUNT (AUTO) 44.3 K/uL (4.8-10.8)
[2020-04-09 08:16] LABS: HEMATOCRIT 19.9 % (42-54)
[2020-04-09] MEDS: LACTULOSE 20 GM/30 ML UDCUP PO SCH ×2 (08:21→20:06)
[2020-04-09] MEDS: FAMOTIDINE/PF 20 MG/2 ML VIAL IV SCH (08:21)
[2020-04-09] MEDS: ZINC SULFATE 220 CAPSULE PO SCH (08:21)
[2020-04-09] MEDS: FOLIC ACID/VITAMIN B COMP W-C 1 CAP TAB PO SCH (08:22)
[2020-04-09] MEDS: FOLIC ACID 1 MG TABLET PO SCH (08:22)
[2020-04-09] MEDS: ASCORBIC ACID 500 MG TAB PO SCH (08:22)
[2020-04-09 08:33] LABS: ALBUMIN 1.5 g/dL (3.5-5.0); POTASSIUM 5.8 mmol/L (3.5-5.1); TOTAL PROTEIN, SERUM 5.7 g/dL (6.0-8.3)
[2020-04-09 08:57] LABS: BAND NEUTROPHILS % (MANUAL) 1 % (0-2); BASOPHILS % (MANUAL) 1 % (0-2); CREATININE 10.2 mg/dL (0.5-1.5); LYMPHOCYTES % (MANUAL) 9 % (22-44); MONOCYTES % (MANUAL) 4 % (2-9); SEGMENTED NEUTROPHILS % 85 % (40-70)
[2020-04-09 08:58] LABS: MAN.DIFF COMMENT-IMPRESSION MANUAL DIFFERENTIAL
--- NOTE | 2020-04-09 09:00 | NUR ---
CRITICAL RESULTS CALLED IN TO
--- NOTE | 2020-04-09 09:31 | NUR ---
PT NOT TOLERATING ANY MOVEMENT. INCREASED LEVOPHED.
[2020-04-09] MEDS: MIDAZOLAM 50MG-0.9% NS 50ML 50 ML IV SCH (11:05)
[2020-04-09] MEDS: DEXTROSE 10%-WATER 1,000 ML IV SCH ×2 (11:57→21:57)
[2020-04-09] MEDS: SODIUM BICARB 8.4% 50ML SYRING 150 MEQ in DEXTROSE 5%-WATER 1,000 ML IVP SCH ×2 (11:57→23:49)
[2020-04-09] MEDS: VANCOMYCIN 750MG + NS 250 ML IV SCH ×2 (12:00)
[2020-04-09] MEDS: FENTANYL 2500MCG+NS 250ML 250 ML IV SCH (14:49)
[2020-04-09] MEDS: HONEY 1 APPL/ML TUBE TP SCH (17:00)
[2020-04-09] MEDS: VASOPRESSIN 20 UNITS/NS 100ML IV SCH ×2 (19:27)
[2020-04-10] VITALS (30 sets, daily range): BP systolic 77–117; BP diastolic 37–63
[2020-04-10] MEDS: MEROPENEM 1 GM VIAL IVP SCH ×3 (00:27→23:50)
[2020-04-10] MEDS: NOREPINEPHRINE BITARTRATE IV SCH (03:06)
[2020-04-10] MEDS: SODIUM CHLORIDE 0.9% IV SCH (03:06)
[2020-04-10] MEDS: HYDROCORTISONE SOD SUCCINATE 100 MG/2 ML VIAL IV SCH ×4 (04:52→21:35)
[2020-04-10 05:50] LABS: BASOPHILS % (AUTO) 0.3 % (0.0-5.0); EOSINOPHILS % (AUTO) 0.2 % (0.0-8.0); LYMPHOCYTES % (AUTO) 4.9 % (21.0-51.0); MEAN CORPUSCULAR HEMOGLOBIN 34.9 pg (27.0-33.0); MEAN CORPUSCULAR HGB CONC 33.9 g/dL (32.0-36.0); MEAN CORPUSCULAR VOLUME 103.2 fL (79-99); NEUTROPHILS % (AUTO) 77.6 % (40.0-77.0); NUCLEATED RED BLOOD CELLS 15.9 % (0.0-0.19); PLATELET COUNT (AUTO) 33 K/uL (130-400); RED BLOOD CELL COUNT(AUTO) 1.86 MIL/uL (4.50-6.20); RED CELL DISTRIBUTION WIDTH 24.2 % (11.0-15.5)
[2020-04-10 05:53] LABS: HEMATOCRIT 19.2 % (42-54); WHITE BLOOD COUNT (AUTO) 39.8 K/uL (4.8-10.8)
[2020-04-10 06:15] LABS: LYMPHOCYTES % (MANUAL) 7 % (22-44); MAN.DIFF COMMENT-IMPRESSION MANUAL DIFFERENTIAL; MONOCYTES % (MANUAL) 14 % (2-9); SEGMENTED NEUTROPHILS % 79 % (40-70)
[2020-04-10 06:18] LABS: MAGNESIUM 2.5 mg/dL (1.80-2.40); PHOSPHORUS 13.5 mg/dL (2.5-4.9)
[2020-04-10 06:21] LABS: POTASSIUM 6.3 mmol/L (3.5-5.1)
[2020-04-10] MEDS ORDERED: SODIUM CHLORIDE 0.9% 250 ML IV ONE (09:14)
[2020-04-10] MEDS: FOLIC ACID/VITAMIN B COMP W-C 1 CAP TAB PO SCH (09:22)
[2020-04-10] MEDS: LACTULOSE 20 GM/30 ML UDCUP PO SCH ×2 (09:22→21:34)
[2020-04-10] MEDS: ZINC SULFATE 220 CAPSULE PO SCH (09:22)
[2020-04-10] MEDS: ASCORBIC ACID 500 MG TAB PO SCH (09:22)
[2020-04-10] MEDS: FAMOTIDINE/PF 20 MG/2 ML VIAL IV SCH (09:23)
[2020-04-10] MEDS: FOLIC ACID 1 MG TABLET PO SCH (09:24)
[2020-04-10] MEDS: SODIUM BICARB 8.4% 50ML SYRING 150 MEQ in DEXTROSE 5%-WATER 1,000 ML IVP SCH (12:56)
[2020-04-10] MEDS: MIDAZOLAM 50MG-0.9% NS 50ML 50 ML IV SCH (14:17)
--- NOTE | 2020-04-10 16:45 | NUR ---
Documentation completed Completed family and pt history. Infomation was given by Ade Cisneros (significant other)
[2020-04-10] MEDS: HONEY 1 APPL/ML TUBE TP SCH (17:00)
[2020-04-10] MEDS ORDERED: MIDAZOLAM 100MG-0.9% NS 100ML 100 ML IV SCH (18:30)
[2020-04-11] VITALS (26 sets, daily range): BP systolic 106–175; BP diastolic 43–74
[2020-04-11] MEDS: VASOPRESSIN 20 UNITS/NS 100ML IV SCH ×4 (00:19→07:48)
[2020-04-11] MEDS: SODIUM BICARB 8.4% 50ML SYRING 150 MEQ in DEXTROSE 5%-WATER 1,000 ML IVP SCH ×2 (03:01→17:56)
[2020-04-11] MEDS: DEXTROSE 10%-WATER 1,000 ML IV SCH ×2 (03:02→23:53)
[2020-04-11] MEDS: HYDROCORTISONE SOD SUCCINATE 100 MG/2 ML VIAL IV SCH ×4 (05:25→21:15)
[2020-04-11] MEDS ORDERED: PHARMACY COMMUNICATION MISC SCH (06:45)
[2020-04-11] MEDS: LACTULOSE 20 GM/30 ML UDCUP PO SCH ×2 (08:27→21:15)
[2020-04-11] MEDS: FAMOTIDINE/PF 20 MG/2 ML VIAL IV SCH (08:28)
[2020-04-11] MEDS: ZINC SULFATE 220 CAPSULE PO SCH (08:28)
[2020-04-11] MEDS: FOLIC ACID 1 MG TABLET PO SCH (08:28)
[2020-04-11] MEDS: FOLIC ACID/VITAMIN B COMP W-C 1 CAP TAB PO SCH (08:28)
[2020-04-11] MEDS: ASCORBIC ACID 500 MG TAB PO SCH (08:28)
[2020-04-11 09:15] LABS: BASOPHILS % (AUTO) 0.4 % (0.0-5.0); EOSINOPHILS % (AUTO) 0.1 % (0.0-8.0); HEMATOCRIT 23.5 % (42-54); MEAN CORPUSCULAR HEMOGLOBIN 33.9 pg (27.0-33.0); MEAN CORPUSCULAR VOLUME 99.6 fL (79-99); MONOCYTES % (AUTO) 4.5 % (3.0-13.0); NEUTROPHILS % (AUTO) 80.9 % (40.0-77.0); NUCLEATED RED BLOOD CELLS 13.5 % (0.0-0.19); PLATELET COUNT (AUTO) 43 K/uL (130-400); RED BLOOD CELL COUNT(AUTO) 2.36 MIL/uL (4.50-6.20); RED CELL DISTRIBUTION WIDTH 24.6 % (11.0-15.5)
[2020-04-11 09:47] LABS: CREATININE 11.7 mg/dL (0.5-1.5)
[2020-04-11 09:48] LABS: WHITE BLOOD COUNT (AUTO) 39.4 K/uL (4.8-10.8)
[2020-04-11 11:35] LABS: EOSINOPHILS % (MANUAL) 2 % (1-6); LYMPHOCYTES % (MANUAL) 1 % (22-44); MAN.DIFF COMMENT-IMPRESSION MANUAL DIFFERENTIAL; MONOCYTES % (MANUAL) 8 % (2-9); SEGMENTED NEUTROPHILS % 89 % (40-70)
[2020-04-11] MEDS: MEROPENEM 1 GM VIAL IVP SCH ×2 (11:49→23:51)
[2020-04-11] MEDS: HONEY 1 APPL/ML TUBE TP SCH (17:46)
[2020-04-11] MEDS: FENTANYL 2500MCG+NS 250ML 250 ML IV SCH (17:57)
[2020-04-11] MEDS: NOREPINEPHRINE BITARTRATE IV SCH (23:52)
[2020-04-11] MEDS: SODIUM CHLORIDE 0.9% IV SCH (23:52)
[2020-04-12] VITALS (18 sets, daily range): BP systolic 76–123; BP diastolic 37–67
[2020-04-12 04:42] LABS: HEMATOCRIT 21.2 % (42-54); MEAN CORPUSCULAR HEMOGLOBIN 34.8 pg (27.0-33.0); MEAN CORPUSCULAR HGB CONC 34.4 g/dL (32.0-36.0); NUCLEATED RED BLOOD CELLS 14.4 % (0.0-0.19); PLATELET COUNT (AUTO) 41 K/uL (130-400); RED CELL DISTRIBUTION WIDTH 25.4 % (11.0-15.5)
[2020-04-12 04:57] LABS: WHITE BLOOD COUNT (AUTO) 40.6 K/uL (4.8-10.8)
[2020-04-12 05:05] LABS: BAND NEUTROPHILS % (MANUAL) 4 % (0-2); LYMPHOCYTES % (MANUAL) 4 % (22-44); MAN.DIFF COMMENT-IMPRESSION MANUAL DIFFERENTIAL; METAMYELOCYTES % 1 % (0-0); MONOCYTES % (MANUAL) 2 % (2-9); MYELOCYTES % 1 % (0-0); SEGMENTED NEUTROPHILS % 88 % (40-70)
[2020-04-12] MEDS: HYDROCORTISONE SOD SUCCINATE 100 MG/2 ML VIAL IV SCH ×2 (05:24→09:07)
[2020-04-12 06:22] LABS: CARBON DIOXIDE 30 mmol/L (21-32); GLUCOSE,RANDOM 147 mg/dL (70-105); SODIUM SERUM 128 mmol/L (136-145)
[2020-04-12 06:23] LABS: ALANINE AMINOTRANSFERASE 68 U/L (12-78); ALBUMIN 1.3 g/dL (3.5-5.0); ASPARTATE AMINOTRANSFERASE 289 U/L (10-37); GLOMERULAR FILTR. RATE CALC 5 mL/min (>60); TOTAL PROTEIN, SERUM 5.5 g/dL (6.0-8.3)
[2020-04-12 06:25] LABS: CHLORIDE 82 mmol/L (101-111); POTASSIUM 7.5 mmol/L (3.5-5.1); UREA NITROGEN, BLOOD 201 mg/dL (7-18)
[2020-04-12 06:26] LABS: BILIRUBIN,TOTAL 29.5 mg/dL (0.2-1.0); CREATININE 12.5 mg/dL (0.5-1.5)
[2020-04-12] MEDS: FOLIC ACID/VITAMIN B COMP W-C 1 CAP TAB PO SCH (08:20)
[2020-04-12] MEDS: ASCORBIC ACID 500 MG TAB PO SCH (08:20)
[2020-04-12] MEDS: LACTULOSE 20 GM/30 ML UDCUP PO SCH (08:20)
[2020-04-12] MEDS: FOLIC ACID 1 MG TABLET PO SCH (08:20)
[2020-04-12] MEDS: ZINC SULFATE 220 CAPSULE PO SCH (08:20)
[2020-04-12] MEDS: FAMOTIDINE/PF 20 MG/2 ML VIAL IV SCH (08:21)
[2020-04-12] MEDS: NOREPINEPHRINE BITARTRATE IV SCH (09:32)
[2020-04-12] MEDS: SODIUM CHLORIDE 0.9% IV SCH (09:32)
--- NOTE | 2020-04-12 12:17 | NUR ---
RD FOLLOW UP Pt continues on life support. Multiorgan system failure, little to no urine output as per EMR. No nutrition intervention measures at this time. RD to follow up.
== END 2020-04-12 17:13 | disposition expired | DRG 870 ==
LOC: EDH 01:57 → EDHIP 06:15 → 2CH 04-01 15:38
PROVIDERS: ADMIT Internal Medicine Nephrology; ATTEND Internal Medicine Nephrology
PROC: 02HV33Z Insertion of Infusion Device into Superior Vena Cava, Percutaneous Approach (ICD-10-PCS; principal; 2020-04-01)
PROC: 5A1955Z Respiratory Ventilation, Greater than 96 Consecutive Hours (ICD-10-PCS; 2020-04-01)
PROC: 0BH17EZ Insertion of Endotracheal Airway into Trachea, Via Natural or Artificial Opening (ICD-10-PCS; 2020-04-01)
PROC: 5A09357 Assistance with Respiratory Ventilation, Less than 24 Consecutive Hours, Continuous Positive Airway Pressure (ICD-10-PCS; 2020-04-01)
PROC: 30233N1 Transfusion of Nonautologous Red Blood Cells into Peripheral Vein, Percutaneous Approach (ICD-10-PCS; 2020-04-02)
DX: A41.89 Other specified sepsis (principal); U07.1 COVID-19; R65.21 Severe sepsis with septic shock; J96.01 Acute respiratory failure with hypoxia; K72.00 Acute and subacute hepatic failure without coma; J12.89 Other viral pneumonia; K76.7 Hepatorenal syndrome; N18.6 End stage renal disease; N17.9 Acute kidney failure, unspecified; E87.2 Acidosis; L03.115 Cellulitis of right lower limb; I12.0 Hypertensive chronic kidney disease with stage 5 chronic kidney disease or end stage renal disease; K92.2 Gastrointestinal hemorrhage, unspecified; E11.649 Type 2 diabetes mellitus with hypoglycemia without coma; K74.60 Unspecified cirrhosis of liver; D63.8 Anemia in other chronic diseases classified elsewhere; D69.6 Thrombocytopenia, unspecified; E11.22 Type 2 diabetes mellitus with diabetic chronic kidney disease; E11.51 Type 2 diabetes mellitus with diabetic peripheral angiopathy without gangrene; E66.01 Morbid (severe) obesity due to excess calories; E87.5 Hyperkalemia; F17.200 Nicotine dependence, unspecified, uncomplicated; I46.9 Cardiac arrest, cause unspecified; Z66 Do not resuscitate; Z82.49 Family history of ischemic heart disease and other diseases of the circulatory system; Z83.3 Family history of diabetes mellitus; Z88.1 Allergy status to other antibiotic agents
CPT/HCPCS: 31500; 36415; 36430; 36600; 71045; 73700; 76882; 80048; 80053; 80076; 80202; 80305; 81001; 82140; 82435; 82728; 82803; 82947; 82948; 83605; 83615; 83735; 83880; 84100; 84132; 84295; 84484; 84550; 85014; 85018; 85025; 85027; 85378; 85610; 85730; 86850; 86900; 86901; 86922; 87040; 87088; 92950; 93005; 93971; 94002; 94003; 94660; 99291; G0378; J0610; J0692; J1170; J1720; J1815; J2185; J2250; J2405; J2543; J2704; J3010; J3370; J3475; J3490; J7030; J7040; J7042; J7050; J7070; P9016; P9046; U0003